=== PATIENT | female | born 1975 | race Caucasian/White ===

== ENCOUNTER 2017-07-16 17:30 | Emergency (ER) | payer OTHER ==
[~2017-07-16] VITALS: Ht 165.1 cm; Wt 142.9 kg
[2017-07-16 18:05] VITALS: BP 135/96
--- NOTE | 2017-07-16 18:48 | PHYS DOC ---
Past Medical History Past Medical History: Arthritis, Hypertension, Migraines, Other Additional Past Medical Histor: DDD - chronic back and neck pain, nerve damage ; TBI Past Surgical History: Cervical Fusion, Tubal ligation Additional Past Surgical Histo: stomach, jaw, right ankle, right foot, MRSA in breast, exp lap Alcohol Use: None Drug Use: Marijuana Adult General Chief Complaint Chief Complaint: KNEE INJURY [facility] HPI Patient is a 41 year old female presents to the emergency department stating that she has been having right knee pain for the last 3 weeks. She denies any injury or trauma. She states that she has increased pain when trying to bend or put any type of kneeling pressure on the knee. Patient states she has been taking oxycodone for the pain and discomfort which is not helping. She denies any numbness or tingling down into the lower extremity. She states she is able to ambulate however sometimes she has increased pain with ambulation. Patient states that she is allergic to aspirin and ibuprofen and cannot take any nonsteroidal anti-inflammatories. Review of Systems Review of Systems Constitutional: Denies fever or chills [] Eyes: Denies change in visual acuity, redness, or eye pain [] HENT: Denies nasal congestion or sore throat [] Respiratory: Denies cough or shortness of breath [] Cardiovascular: No additional information not addressed in HPI [] GI: Denies abdominal pain, nausea, vomiting, bloody stools or diarrhea [] : Denies dysuria or hematuria [] Musculoskeletal: Denies back pain. C/o right knee pain Integument: Denies rash or skin lesions [] Neurologic: Denies headache, focal weakness or sensory changes [] Endocrine: Denies polyuria or polydipsia [] All other systems were reviewed and found to be within normal limits, except as documented in this note. Allergies Allergies Allergies Coded Allergies Type Severity Reaction Last Updated Verified aspirin Allergy Severe SOB 10/01/13 Yes ibuprofen Allergy Severe SOB 10/01/13 Yes Physical Exam Physical Exam Constitutional: Well developed, well nourished, no acute distress, non-toxic appearance. [] HENT: Normocephalic, atraumatic, bilateral external ears normal, oropharynx moist, no oral exudates, nose normal. [] Eyes: PERRLA, EOMI, conjunctiva normal, no discharge. [] Neck: Normal range of motion, no tenderness, supple, no stridor. [] Cardiovascular:Heart rate regular rhythm, no murmur [] Lungs & Thorax: Bilateral breath sounds clear to auscultation [] Skin: Warm, dry, no erythema, no rash. [] Extremities: right anterior knee tenderness, no cyanosis, no clubbing, ROM intact, no edema. Peripheral pulses 2+ cap refill brisk < 2 seconds. Negative Sugar, negative vargus, negative valgus. Neurologic: Alert and oriented X 3, normal motor function, normal sensory function, no focal deficits noted. [] Psychologic: Affect normal, judgement normal, mood normal. [] Current Patient Data Vital Signs Vital Signs Date Time Temp Pulse Resp B/P (MAP) Pulse Ox O2 Delivery O2 Flow Rate FiO2 07/16/17 18:05 98.1 93 20 135/96 (109) 91 Room Air 98.1 EKG EKG [] Radiology/Procedures Radiology/Procedures [] Course & Med Decision Making Course & Med Decision Making Pertinent Labs and Imaging studies reviewed. (See chart for details) Right knee x-rays were negative per Dr. Ruiz. Patient will be discharged home with an Arnol wrap to the right knee with recommendations for steroids to help with inflammation and discomfort. Patient has oxycodone at home which she can continue taking for further pain management. Recommended that she follow up with orthopedic. Patient agrees with discharge instructions and treatment regimens and follow-up recommendations. [I've spoken with the patient and/or caregivers. I've explained the patient's condition, diagnosis and treatment plan based on information available to me at this time. I've answered the patient's and/or caregivers questions and addressed any concerns. The patient and/or caregivers have a good understanding the patient's diagnosis, condition and treatment plan as can be expected at this point. Vital signs have been stabilized. The patient's condition is stable for discharge from the emergency department. The patient will pursue further outpatient evaluation with her primary care provider or other designated consulting physician as outlined in the discharge instructions. Patient and/or caregivers are agreeable to this plan of care and follow-up instructions have been explained in detail. The patient and/or caregivers have received these instructions in written format and expressed understanding of these discharge instructions. The patient and her caregivers are aware that if any significant change in condition or worsening of symptoms should prompt him to immediately return to this of the closest emergency department. If an emergent department is not readily available I would encourage him to call 911. ] Sheila Disclaimer Sheila Disclaimer This electronic medical record was generated, in whole or in part, using a voice recognition dictation system. Departure Departure Impression: Primary Impression: Right knee pain Disposition: HOME, SELF-CARE Condition: STABLE Referrals: UNKNOWN PCP NAME (PCP) FREDY COOPER II, MD Patient Instructions: Elastic Bandage and RICE, Knee Pain, [id number] Additional Instructions: Activity as tolerated. Ice packs on 20 minutes off several times a day. Elevation as much as possible. Medications as prescribed. Follow-up with orthopedic within the week. Return back to emergency department since symptoms become worse. 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
--- NOTE | 2017-07-17 07:58 | RAD ---
Right knee with patella, 4 views, 07/16/2017: History: Right knee pain, injury There is minimal spurring at the knee joint and at the patellofemoral articulation. No fracture or dislocation is identified. There is a suggestion of a joint effusion. IMPRESSION: 1. Mild degenerative change. 2. No acute bony abnormality is detected.
== END 2017-07-16 19:40 | disposition home or self-care (01) ==
LOC: ER 17:30
DX: M25.561 Pain in right knee (principal); G89.29 Other chronic pain; I10 Essential (primary) hypertension; G43.909 Migraine, unspecified, not intractable, without status migrainosus; Z88.6 Allergy status to analgesic agent; Z88.8 Allergy status to other drugs, medicaments and biological substances
CPT/HCPCS: 73564; 99284

== ENCOUNTER 2017-10-02 12:22 | Inpatient (IN) | payer OTHER ==
[2017-10-02 13:34] LABS: ADD MAN DIFF? NO
[2017-10-02 13:45] LABS: ANION GAP 6 (6-14); BLOOD UREA NITROGEN 7 mg/dL (7-20); BUN/CREATININE RATIO 9 (6-20); CALCIUM 8.3 mg/dL (8.5-10.1); CARBON DIOXIDE 30 mmol/L (21-32); CHLORIDE 100 mmol/L (98-107); CREATININE 0.8 mg/dL (0.6-1.0); GFR 77.9; GLUCOSE 98 mg/dL (70-99); POTASSIUM 3.9 mmol/L (3.5-5.1); SODIUM 136 mmol/L (136-145)
[2017-10-02 13:51] LABS: ALBUMIN 3.1 g/dL (3.4-5.0); ALBUMIN/GLOBULIN RATIO 0.8 (1.0-1.7); ALK PHOS 121 U/L (46-116); ALT (SGPT) 17 U/L (14-59); AST (SGOT) 50 U/L (15-37); TOTAL BILIRUBIN 0.2 mg/dL (0.2-1.0); TOTAL PROTEIN 6.9 g/dL (6.4-8.2)
[2017-10-02 13:53] LABS: TROPONINI < 0.017 ng/mL (0.000-0.055)
[2017-10-02] MEDS: MORPHINE SULFATE 4 MG/ML DISP.SYRIN. IV ×6 (13:53→23:01)
[2017-10-02 14:04] LABS: BASO # 0.1 x10^3/uL (0.0-0.2); BASO % 1 % (0-3); EOS # 0.1 x10^3/uL (0.0-0.7); EOS % 1 % (0-3); HEMATOCRIT 34.2 % (36.0-47.0); HEMOGLOBIN 10.6 g/dL (12.0-15.5); LYMPH # 2.4 x10^3/uL (1.0-4.8); LYMPH % 19 % (24-48); MEAN CORPUSCULAR HEMOGLOBIN 23 pg (25-35); MEAN CORPUSCULAR HGB CONC 31 g/dL (31-37); MEAN CORPUSCULAR VOLUME 75 fL (79-100); MONO # 0.8 x10^3/uL (0.0-1.1); MONO % 7 % (0-9); NEUT % 73 % (31-73); PLATELET COUNT 370 x10^3/uL (140-400); RED BLOOD COUNT 4.57 x10^6/uL (3.50-5.40); RED CELL DISTRIBUTION WIDTH 18.8 % (11.5-14.5); WHITE BLOOD COUNT 12.4 x10^3/uL (4.0-11.0)
[2017-10-02 14:11] LABS: PROTHROMBIN TIME PATIENT 12.8 SEC (11.7-14.0)
[2017-10-02 18:25] LABS: VITAMIN-B12 265 pg/mL (247-911)
[2017-10-02] MEDS: AMITRIPTYLINE HCL 50 MG TABLET PO ×2 (20:10)
[2017-10-02] MEDS: buPROPion 75 MG TABLET. PO ×2 (20:10)
[2017-10-02] MEDS: diazePAM 5 MG TABLET PO ×2 (20:11)
[2017-10-02] MEDS: DIPYRIDAMOLE 25 MG TABLET. PO ×2 (20:11)
[2017-10-02] MEDS: GABAPENTIN 400 MG CAPSULE. PO ×2 (20:11)
[2017-10-03 05:48] LABS: ADD MAN DIFF? NO
[2017-10-03 06:28] LABS: BASO # 0.1 x10^3/uL (0.0-0.2); BASO % 1 % (0-3); EOS # 0.2 x10^3/uL (0.0-0.7); EOS % 3 % (0-3); HEMATOCRIT 31.6 % (36.0-47.0); LYMPH # 2.5 x10^3/uL (1.0-4.8); LYMPH % 30 % (24-48); MEAN CORPUSCULAR HEMOGLOBIN 24 pg (25-35); MEAN CORPUSCULAR HGB CONC 32 g/dL (31-37); MEAN CORPUSCULAR VOLUME 75 fL (79-100); MONO # 0.8 x10^3/uL (0.0-1.1); MONO % 10 % (0-9); NEUT # 4.7 x10^3uL (1.8-7.7); NEUT % 57 % (31-73); PLATELET COUNT 326 x10^3/uL (140-400); RED BLOOD COUNT 4.21 x10^6/uL (3.50-5.40); RED CELL DISTRIBUTION WIDTH 19.2 % (11.5-14.5); WHITE BLOOD COUNT 8.3 x10^3/uL (4.0-11.0)
[2017-10-03 06:36] LABS: ALBUMIN 2.6 g/dL (3.4-5.0); ALBUMIN/GLOBULIN RATIO 0.6 (1.0-1.7); ALK PHOS 114 U/L (46-116); ALT (SGPT) 13 U/L (14-59); ANION GAP 7 (6-14); AST (SGOT) 35 U/L (15-37); BUN/CREATININE RATIO 12 (6-20); CALCIUM 7.6 mg/dL (8.5-10.1); CARBON DIOXIDE 29 mmol/L (21-32); CHLORIDE 100 mmol/L (98-107); CHOLESTEROL 133 mg/dL (0-200); GFR 60.2; GLUCOSE 106 mg/dL (70-99); HDLC 36 mg/dL (40-60); LDLC 66 mg/dL (0-100); NON-HDL CHOLESTEROL 97 mg/dL (0-129); POTASSIUM 3.2 mmol/L (3.5-5.1); SODIUM 136 mmol/L (136-145); TOTAL BILIRUBIN 0.1 mg/dL (0.2-1.0); TOTAL PROTEIN 6.7 g/dL (6.4-8.2); TRIGLYCERIDES 153 mg/dL (0-150); VLDLC 31 mg/dL (0-40)
[2017-10-03 06:37] LABS: CHOLESTEROL/HDL RATIO 3.7
[2017-10-03 06:41] LABS: BLOOD UREA NITROGEN 12 mg/dL (7-20)
[2017-10-03 06:55] LABS: THYROID STIM HORMONE (TSH) 0.711 uIU/mL (0.358-3.74)
[2017-10-03] MEDS ORDERED: [UNRECOGNIZED DRUG - OTHER] PO ×2 (09:00)
[2017-10-03] MEDS ORDERED: NON FORMULARY ITEM (Lisdexamfetamine Dimesylate (Vyvanse) 70 MG) PO ×2 (09:00)
[2017-10-03] MEDS: lamoTRIgine 100 MG TABLET. PO ×2 (09:00)
[2017-10-03] MEDS ORDERED: LISINOPRIL PO ×2 (09:00)
[2017-10-03] MEDS ORDERED: HYDROCHLOROTHIAZIDE PO ×2 (09:00)
[2017-10-03 09:59] LABS: VITAMIN-B12 198 pg/mL (247-911)
[2017-10-03] MEDS: GABAPENTIN 400 MG CAPSULE. PO ×4 (10:26→13:36)
[2017-10-03] MEDS: PANTOPRAZOLE 40 MG TABLET.DR. PO ×2 (10:26)
[2017-10-03] MEDS: hydroCHLOROthiazide 25 MG TABLET PO ×2 (10:26)
[2017-10-03] MEDS: diazePAM 5 MG TABLET PO ×2 (10:26)
[2017-10-03] MEDS: DIPYRIDAMOLE 25 MG TABLET. PO ×2 (10:26)
[2017-10-03] MEDS: LISINOPRIL 20 MG TABLET PO ×2 (10:27)
[2017-10-03] MEDS: buPROPion 75 MG TABLET. PO ×2 (10:27)
[2017-10-03] MEDS: MORPHINE SULFATE 4 MG/ML DISP.SYRIN. IV ×4 (10:33→13:42)
[2017-10-03] MEDS: CYANOCOBALAMIN (VITAMIN B-12) 1,000 MCG TABLET. PO ×2 (11:32)
[2017-10-03] MEDS: ERGOCALCIFEROL (VITAMIN D2) 50,000 UNIT CAPSULE. PO ×2 (11:32)
[2017-10-03] MEDS: CALCIUM CARBONATE 500 MG TABLET PO ×2 (11:32)
[2017-10-03] MEDS: CYANOCOBALAMIN (VITAMIN B-12) 1,000 MCG/ML VIAL IM ×2 (13:36)
[2017-10-03] MEDS: POTASSIUM CHLORIDE 20 MEQ TABLET.ER. PO ×2 (13:37)
== END 2017-10-03 16:30 | disposition home or self-care (01) | DRG 948 ==
LOC: ER 12:22 → 6 SOUTH 15:00
DX: R53.1 Weakness (principal); E66.01 Morbid (severe) obesity due to excess calories; Z68.43 Body mass index [BMI] 50.0-59.9, adult; D64.9 Anemia, unspecified; E53.8 Deficiency of other specified B group vitamins; E55.9 Vitamin D deficiency, unspecified; F17.200 Nicotine dependence, unspecified, uncomplicated; I10 Essential (primary) hypertension; M19.90 Unspecified osteoarthritis, unspecified site; G89.29 Other chronic pain; R47.81 Slurred speech; G43.909 Migraine, unspecified, not intractable, without status migrainosus; F31.9 Bipolar disorder, unspecified; Z98.1 Arthrodesis status; Z88.8 Allergy status to other drugs, medicaments and biological substances; Z91.013 Allergy to seafood
CPT/HCPCS: 36415; 70450; 70551; 71045; 72125; 72141; 80053; 80061; 82306; 82607; 84443; 84484; 85025; 85610; 93005; 93306; 93880; 96374; 99285-25; J2270; J3420

== ENCOUNTER 2019-10-16 10:30 | Emergency (ER) | payer OTHER ==
[~2019-10-16] VITALS: Ht 167.6 cm; Wt 140.0 kg
[~2019-10-16 10:30] MED LIST: AMIT50TA PO; DIAZ5TAB4 PO; ERGO500027 PO; FLUT12AE INH; GABA400C7 PO; LAMO100T8 PO; LISD70CA5 PO; LISI1TAB20 PO; OMEP20CA16 PO; OXYC15TA PO; TIOT18CA INH; VITA1TAB19 PO; WELLBUTRIN PO
[2019-10-16] MEDS ORDERED: methylPREDNISolone SOD SUCC PF 125 MG/2 ML VIAL. IV ONE (11:30)
[2019-10-16] MEDS ORDERED: FAMOTIDINE 20 MG/2 ML VIAL IVP ONE (11:30)
[2019-10-16 11:40] LABS: BASO # 0.2 x10^3/uL (0.0-0.2); BASO % 2 % (0-3); EOS # 0.2 x10^3/uL (0.0-0.7); EOS % 2 % (0-3); HEMATOCRIT 28.5 % (36.0-47.0); HEMOGLOBIN 8.4 g/dL (12.0-15.5); LYMPH # 2.8 x10^3/uL (1.0-4.8); LYMPH % 25 % (24-48); MEAN CORPUSCULAR HEMOGLOBIN 20 pg (25-35); MEAN CORPUSCULAR HGB CONC 30 g/dL (31-37); MEAN CORPUSCULAR VOLUME 66 fL (79-100); MONO # 0.6 x10^3/uL (0.0-1.1); MONO % 5 % (0-9); NEUT # 7.5 x10^3/uL (1.8-7.7); NEUT % 66 % (31-73); PLATELET COUNT 412 x10^3/uL (140-400); RED BLOOD COUNT 4.32 x10^6/uL (3.50-5.40); RED CELL DISTRIBUTION WIDTH 19.5 % (11.5-14.5); WHITE BLOOD COUNT 11.4 x10^3/uL (4.0-11.0)
--- NOTE | 2019-10-16 11:47 | PHYS DOC ---
Past Medical History Past Medical History: Anxiety, Arthritis, Bipolar, Depression, Hypertension, Migraines, Other Additional Past Medical Histor: DDD - chronic back and neck pain, nerve damage; TBI,obesity Past Surgical History: Cervical Fusion, Tubal ligation Additional Past Surgical Histo: stomach, jaw, right ankle, right foot, MRSA in breast, exp lap,neck surgery Smoking Status: Current Every Day Smoker Alcohol Use: None Drug Use: Marijuana Adult General Chief Complaint Chief Complaint: OTHER COMPLAINTS HPI HPI Patient is a 44 year old female with history of hypertension, migraine, bipolar disorder, DDD - chronic back and neck pain, nerve damage; TBI,obesity who presents with complaining of multiple problems. Patient states she has intermi ttent episodes of chest pain for several weeks that became worse 5 days ago denies having any more chest pain since then. Patient states she thinks her chest pain was related to her anxiety. Patient also complaining of right elbow in full rash since yesterday morning with burning feeling that improved with applying ice on her elbow but she states she woke up this morning and had the same rash with numbness of her right fingers and hand since 5:30 today as a constant numbness without weakness, fever and chills, nausea and vomiting, blurred vision. Patient complaining of chronic headache without visual changes today. Patient states she did not have any numbness patient did go to the police at 0 230. Patient rated her pain 7/10 in right elbow and denies injury. Patient had oxycodone this morning without improvement of her pain. Review of Systems Review of Systems Constitutional: Denies fever or chills [] Eyes: Denies change in visual acuity, redness, or eye pain [] HENT: Denies nasal congestion or sore throat [] Respiratory: Denies cough or shortness of breath [] Cardiovascular: No additional information not addressed in HPI [] GI: Denies abdominal pain, nausea, vomiting, bloody stools or diarrhea [] : Denies dysuria or hematuria [] Musculoskeletal: Denies back pain or joint pain [] Integument: Reports rash Neurologic: Denies headache, sensory changes [] Endocrine: Denies polyuria or polydipsia [] All other systems were reviewed and found to be within normal limits, except as documented in this note. Current Medications Current Medications Current Medications Medications (Trade) Dose Ordered Sig/Cuco Start Time Stop Time Status Last Admin Dose Admin Famotidine (Pepcid Vial) 20 mg 1X ONCE 10/16/19 11:30 10/16/19 11:32 DC 10/16/19 12:23 20 MG Methylprednisolone Sodium Succinate (SOLU-Medrol 125MG VIAL) 125 mg 1X ONCE 10/16/19 11:30 10/16/19 11:32 DC 10/16/19 12:23 125 MG Allergies Allergies Allergies Coded Allergies Type Severity Reaction Last Updated Verified aspirin Allergy Severe SOB 10/01/13 Yes ibuprofen Allergy Severe SOB 10/01/13 Yes Uncoded Allergies Type Severity Reaction Last Updated Verified seafood Allergy Severe sob 10/02/17 Physical Exam Physical Exam Constitutional: Well developed, well nourished, mild distress, non-toxic appearance, morbidly obese mild pallor. [] HENT: Normocephalic, atraumatic. Eyes: PERRLA, EOMI, conjunctiva normal, no discharge. [] Neck: Normal range of motion, no tenderness, supple, no stridor. [] Cardiovascular:Heart rate regular rhythm, no murmur [] Lungs & Thorax: Bilateral breath sounds clear to auscultation [] Abdomen: Bowel sounds normal, soft, no tenderness, no masses, no pulsatile masses. [] Skin: Warm, dry, no erythema, no rash. [] Back: No tenderness, no CVA tenderness. [] Extremities: 2 x 2 cm area of erythema and tenderness without sign of abscess in right elbow , no cyanosis, no clubbing, ROM intact, no edema. [] Neurologic: Alert and oriented X 3, no focal deficits noted. [] Psychologic: Affect anxious, mood normal. [] Current Patient Data Vital Signs Vital Signs Date Time Temp Pulse Resp B/P (MAP) Pulse Ox O2 Delivery O2 Flow Rate FiO2 10/16/19 13:00 84 18 148/86 (106) 95 Room Air 10/16/19 11:03 98.1 98.1 Lab Values Laboratory Tests Test 10/16/19 11:13 White Blood Count 11.4 x10^3/uL (4.0-11.0) H Red Blood Count 4.32 x10^6/uL (3.50-5.40) Hemoglobin 8.4 g/dL (12.0-15.5) L Hematocrit 28.5 % (36.0-47.0) L Mean Corpuscular Volume 66 fL (79-100) L Mean Corpuscular Hemoglobin 20 pg (25-35) L Mean Corpuscular Hemoglobin Concent 30 g/dL (31-37) L Red Cell Distribution Width 19.5 % (11.5-14.5) H Platelet Count 412 x10^3/uL (140-400) H Neutrophils (%) (Auto) 66 % (31-73) Lymphocytes (%) (Auto) 25 % (24-48) Monocytes (%) (Auto) 5 % (0-9) Eosinophils (%) (Auto) 2 % (0-3) Basophils (%) (Auto) 2 % (0-3) Neutrophils # (Auto) 7.5 x10^3/uL (1.8-7.7) Lymphocytes # (Auto) 2.8 x10^3/uL (1.0-4.8) Monocytes # (Auto) 0.6 x10^3/uL (0.0-1.1) Eosinophils # (Auto) 0.2 x10^3/uL (0.0-0.7) Basophils # (Auto) 0.2 x10^3/uL (0.0-0.2) Platelet Estimate Increased (ADEQUATE) Large Platelets Few Hypochromasia Marked Anisocytosis Slight Microcytosis Marked Prothrombin Time 12.7 SEC (11.7-14.0) Prothrombin Time INR 1.0 (0.8-1.1) Sodium Level 139 mmol/L (136-145) Potassium Level 4.0 mmol/L (3.5-5.1) Chloride Level 100 mmol/L (98-107) Carbon Dioxide Level 28 mmol/L (21-32) Anion Gap 11 (6-14) Blood Urea Nitrogen 10 mg/dL (7-20) Creatinine 1.1 mg/dL (0.6-1.0) H Estimated GFR (Cockcroft-Gault) 53.5 BUN/Creatinine Ratio 9 (6-20) Glucose Level 141 mg/dL (70-99) H Calcium Level 8.9 mg/dL (8.5-10.1) Magnesium Level 2.1 mg/dL (1.8-2.4) Total Bilirubin 0.1 mg/dL (0.2-1.0) L Aspartate Amino Transferase (AST) 23 U/L (15-37) Alanine Aminotransferase (ALT) 13 U/L (14-59) L Alkaline Phosphatase 119 U/L (46-116) H Troponin I Quantitative < 0.017 ng/mL (0.000-0.055) GP-Wxt-E-Type Natriuretic Peptide 84 pg/mL (0-124) Total Protein 7.1 g/dL (6.4-8.2) Albumin 3.0 g/dL (3.4-5.0) L Albumin/Globulin Ratio 0.7 (1.0-1.7) L Laboratory Tests 10/16/19 11:13 Laboratory Tests 10/16/19 11:13 EKG EKG EKG interpreted by me. EKG at 1225 showed normal sinus rhythm at rate of 88, nonspecific T-wave abnormality, no acute distress even elevation. Radiology/Procedures Radiology/Procedures [address] [id number] IMAGING REPORT Signed PATIENT: MARY JANE PACHECO ACCOUNT: [id number] : 1975 LOCATION: ER AGE: 44 SEX: F EXAM STATUS: REG ER ORD. PHYSICIAN: MARIZA PAULA MD REASON: chest pain and paresthesia PROCEDURE: CT HEAD WO CONTRAST Examination: CT HEAD WO CONTRAST History: Paresthesias Comparison/Correlation: None Findings: Axial images of the head were obtained without contrast. Coronal reformatted images were provided. Ventricles are normal size. No intracranial hemorrhage, or mass effect. The orbits are unremarkable. Small right sphenoid sinus mucous retention cyst is present. Impression: No suspicious process. PQRS Compliance Statement: One or more of the following individualized dose reduction techniques were utilized for this examination: 1. Automated exposure control 2. Adjustment of the mA and/or kV according to patient size 3. Use of iterative reconstruction technique Electronically signed by: Denis Wright MD (10/16/2019 12:07 PM) [id number] DICTATED and SIGNED BY: DENIS WRIGHT MD DATE: 10/16/[address] [place] [id number] IMAGING REPORT Signed PATIENT: MARY JANE PACHECO ACCOUNT: [id number] : 1975 LOCATION: ER AGE: 44 SEX: F EXAM STATUS: REG ER ORD. PHYSICIAN: MARIZA PAULA MD REASON: pain PROCEDURE: ELBOW RIGHT 3V Examination: ELBOW RIGHT 3V History: Pain Comparison/Correlation: None Findings: Total of 3 images of the right elbow were obtained. Joint spaces are normal. No fracture or bony destruction. No fat-pad displacement to suggest joint effusion. No degenerative changes. Soft tissues unremarkable. Impression: Normal right elbow x-ray exam. Electronically signed by: Denis Wright MD (10/16/2019 12:19 PM) [id number] DICTATED and SIGNED BY: DENIS WRIGHT MD DATE: 10/16/19 1219 [facility] [address] [place], [place] [id number] IMAGING REPORT Signed PATIENT: MARY JANE PACHECO ACCOUNT: [id number] : 1975 LOCATION: ER AGE: 44 SEX: F EXAM STATUS: REG ER ORD. PHYSICIAN: MARIZA PAULA MD REASON: chest pain PROCEDURE: PORTABLE CHEST 1V Examination: PORTABLE CHEST 1V History: Chest pain Comparison/Correlation: 10/02/2017 Portable Chest X-ray Exam Findings: Portable upright frontal view of chest was obtained. Heart size and pulmonary vessels are normal. No infiltrate or pleural effusion. Postoperative cervical spine fusion is present. No pneumothorax. Impression: No acute process. Electronically signed by: Denis Wright MD (10/16/2019 11:52 AM) [id number] DICTATED and SIGNED BY: DENIS WRIGHT MD DATE: 10/16/19 1157 Course & Med Decision Making Course & Med Decision Making Pertinent Labs and Imaging studies reviewed. (See chart for details) Evaluation of patient in ER showed 44-year-old female patient with complaining of multiple problems with history of anxiety and panic attack. Patient had unremarkable physical exam except for mild anemia and morbid obesity. Patient eloped before having all of the test results. Dragon Disclaimer Dragon Disclaimer This electronic medical record was generated, in whole or in part, using a voice recognition dictation system. Departure Departure Impression: Primary Impression: Left against medical advice Disposition: 07 AGAINST MEDICAL ADVICE Condition: STABLE Referrals: AIDE REID APRN (PCP) MARIZA PAULA MD Oct 16, 2019 11:46
[2019-10-16 11:53] LABS: CALCIUM 8.9 mg/dL (8.5-10.1); CREATININE 1.1 mg/dL (0.6-1.0); GFR 53.5; PROTHROMBIN TIME PATIENT 12.7 SEC (11.7-14.0)
--- NOTE | 2019-10-16 11:54 | RAD ---
Examination: PORTABLE CHEST 1V History: Chest pain Comparison/Correlation: 10/02/2017 Portable Chest X-ray Exam Findings: Portable upright frontal view of chest was obtained. Heart size and pulmonary vessels are normal. No infiltrate or pleural effusion. Postoperative cervical spine fusion is present. No pneumothorax. Impression: No acute process. Electronically signed by: Denis Mcdaniel MD (10/16/2019 11:52 AM) [id number]
[2019-10-16 11:58] LABS: ALBUMIN/GLOBULIN RATIO 0.7 (1.0-1.7); MAGNESIUM 2.1 mg/dL (1.8-2.4); TOTAL BILIRUBIN 0.1 mg/dL (0.2-1.0); TOTAL PROTEIN 7.1 g/dL (6.4-8.2)
--- NOTE | 2019-10-16 12:11 | RAD ---
Examination: CT HEAD WO CONTRAST History: Paresthesias Comparison/Correlation: None Findings: Axial images of the head were obtained without contrast. Coronal reformatted images were provided. Ventricles are normal size. No intracranial hemorrhage, or mass effect. The orbits are unremarkable. Small right sphenoid sinus mucous retention cyst is present. Impression: No suspicious process. PQRS Compliance Statement: One or more of the following individualized dose reduction techniques were utilized for this examination: 1. Automated exposure control 2. Adjustment of the mA and/or kV according to patient size 3. Use of iterative reconstruction technique Electronically signed by: Denis Mcdaniel MD (10/16/2019 12:07 PM) [id number]
--- NOTE | 2019-10-16 12:22 | RAD ---
Examination: ELBOW RIGHT 3V History: Pain Comparison/Correlation: None Findings: Total of 3 images of the right elbow were obtained. Joint spaces are normal. No fracture or bony destruction. No fat-pad displacement to suggest joint effusion. No degenerative changes. Soft tissues unremarkable. Impression: Normal right elbow x-ray exam. Electronically signed by: Denis Mcdaniel MD (10/16/2019 12:19 PM) [id number]
[2019-10-16 13:11] LABS: PLT ESTIMATE INCREASED (ADEQUATE)
[2019-10-16 13:13] LABS: ANISOCYTOSIS SLIGHT; HYPOCHROMIA MARKED; MICROCYTOSIS MARKED
[2019-10-16 13:30] VITALS: BP 142/81
--- NOTE | 2019-10-17 06:21 | EKG ---
[facility] [address] [place] [address] Test Date: 2019-10-16 Test Time: 12:25:30 Pat Name: MARY JANE PACHECO Department: Room: Gender: F [employer]: : 1975 Requested By: MARIZA PAULA Order Number: [id number] Reading MD: Measurements Intervals [place] Rate: 87 P: 31 GA: 190 QRS: 24 QRSD: 84 T: 38 QT: 350 QTc: 426 Interpretive Statements SINUS RHYTHM NON SPECIFIC T ABNORMALITY BORDERLINE ECG No previous ECG available for comparison
== END 2019-10-16 13:56 | disposition left against medical advice (07) ==
LOC: ER 10:30
DX: R07.89 Other chest pain (principal); M25.521 Pain in right elbow; R20.0 Anesthesia of skin; R21 Rash and other nonspecific skin eruption; G89.29 Other chronic pain; M54.2 Cervicalgia; G43.909 Migraine, unspecified, not intractable, without status migrainosus; F31.9 Bipolar disorder, unspecified; I10 Essential (primary) hypertension; F17.200 Nicotine dependence, unspecified, uncomplicated; Z88.6 Allergy status to analgesic agent; Z91.013 Allergy to seafood; Z88.8 Allergy status to other drugs, medicaments and biological substances
CPT/HCPCS: 36415; 70450; 71045; 73080; 80053; 83735; 83880; 84484; 85025; 85610; 93005; 96374; 96375; 99285; J2930; J3490

== ENCOUNTER 2020-03-03 16:14 | Emergency (ER) | payer OTHER ==
[~2020-03-03] VITALS: Ht 167.6 cm; Wt 136.0 kg
[~2020-03-03 16:14] MED LIST changes: +ALPR0.5T PO; +GABA600T7 PO; +OMEP20TA8 PO; +OXYC10TA PO; -OXYC15TA PO; +OXYC15TA3 PO
[2020-03-03] MEDS ORDERED: ONDANSETRON PF 4 MG/2 ML VIAL. IVP ONE (17:15)
[2020-03-03] MEDS ORDERED: IV NORMAL SALINE 1000ML BAG 1,000 ML IV ONE (17:15)
[2020-03-03] MEDS ORDERED: fentaNYL PF VIAL 100 MCG/2 ML VIAL IVP ONE ×2 (17:15→19:00)
--- NOTE | 2020-03-03 17:17 | PHYS DOC ---
Past Medical History Past Medical History: Anxiety, Arthritis, Bipolar, Depression, Hypertension, Migraines, Other Additional Past Medical Histor: DDD - chronic back and neck pain, nerve damage; TBI,obesity Past Surgical History: Cervical Fusion, Tubal ligation Additional Past Surgical Histo: stomach, jaw, right ankle, right foot, MRSA in breast, exp lap,neck surgery Smoking Status: Current Every Day Smoker Alcohol Use: None Drug Use: Marijuana General Adult EDM: Chief Complaint: ABNORMAL LABS HPI: HPI: Patient is a 44 year old F who was admitted earlier this month for pneumonia and sepsis. She states she left prior to them wanting her to and was on Augmentin at home but feels like didn't improve. She saw her PCP last week and was alerted on Monday that her labwork showed continued concerns for infection and they recommended she come back to the hospital for IV treatment. She was out of town during that time and had to make arrangements for her 6 year old so came to ER today. She does appear diophoretic and pale on exam and complains of cough and headache. Review of Systems: Review of Systems: Constitutional: Denies fever or chills. [] Eyes: Denies change in visual acuity. [] HENT: Denies nasal congestion or sore throat. [] Respiratory: Denies cough or shortness of breath. [] Cardiovascular: Denies chest pain or edema. [] GI: Denies abdominal pain, nausea, vomiting, bloody stools or diarrhea. [] : Denies dysuria. [] Musculoskeletal: Denies back pain or joint pain. [] Integument: Denies rash. [] Neurologic: Denies headache, focal weakness or sensory changes. [] Endocrine: Denies polyuria or polydipsia. [] Lymphatic: Denies swollen glands. [] Psychiatric: Denies depression or anxiety. [] Heart Score: Risk Factors: Risk Factors: DM, Current or recent (<one month) smoker, HTN, HLP, family h istory of CAD, obesity. Risk Scores: Score 0 - 3: 2.5% MACE over next 6 weeks - Discharge Home Score 4 - 6: 20.3% MACE over next 6 weeks - Admit for Clinical Observation Score 7 - 10: 72.7% MACE over next 6 weeks - Early Invasive Strategies Allergies: Allergies: Allergies Coded Allergies Type Severity Reaction Last Updated Verified aspirin Allergy Severe SOB 10/01/13 Yes ibuprofen Allergy Severe SOB 10/01/13 Yes fish derived Allergy Unknown ANAPHYLAXIS 02/17/20 Yes Physical Exam: PE: Constitutional: Well developed, well nourished, no acute distress, non-toxic appearance. [] HENT: Normocephalic, atraumatic, bilateral external ears normal, oropharynx moist, no oral exudates, nose normal. [] Eyes: PERRLA, EOMI, conjunctiva normal, no discharge. [] Neck: Normal range of motion, no tenderness, supple, no stridor. [] Cardiovascular:Heart rate regular rhythm, no murmur [] Lungs & Thorax: Bilateral breath sounds clear to auscultation [] Abdomen: Bowel sounds normal, soft, no tenderness, no masses, no pulsatile masses. [] Skin: Warm, dry, no erythema, no rash. [] Back: No tenderness, no CVA tenderness. [] Extremities: No tenderness, no cyanosis, no clubbing, ROM intact, no edema. [] Neurologic: Alert and oriented X 3, normal motor function, normal sensory function, no focal deficits noted. [] Psychologic: Affect normal, judgement normal, mood normal. [] EKG: EKG: [] Radiology/Procedures: Radiology/Procedures: [] Course & Med Decision Making: Course & Med Decision Making Pertinent Labs and Imaging studies reviewed. (See chart for details) Pt's labs/CXR are very reassuring and her vitals are stable with no current signs or symptoms of sepsis. Pt feeling better while in ER. She does have mild UTI and was given Rocephin here and will give Keflex for home for few days but pneumonia appears to have resolved. Pt refused the CoVid test and did discuss that we cannot rule this out with her cough and recent fevers. She should q uarantine and have testing done. Rhonaon Disclaimer: Sheila Disclaimer: This electronic medical record was generated, in whole or in part, using a voice recognition dictation system. Departure Departure Impression: Primary Impression: Cough Additional Impressions: UTI (urinary tract infection) Headache Disposition: HOME, SELF-CARE Condition: IMPROVED Referrals: AIDE REID APRN (PCP) Patient Instructions: Cough, Adult, [id number], General Headache Without Cause, Urinary Tract Infection, [id number] Additional Instructions: Your tests were very reassuring today. You do not appear septic and your pneumonia has resolved. You do have a mild UTI and we will continue antibiotics for this. You did not want CoVid19 testing and therefore we cannot rule that out. We recommend you have this testing done at an outpatient facility and remain quarantined at home until results are back. Please quit smoking. Return to ER with any worsening symptoms. Scripts Albuterol Sulfate (PROAIR HFA INHALER) 8.5 Gm Hfa.aer.ad 1 PUFF INH PRN Q6HRS PRN for SHORTNESS OF BREATH for 7 Days, #1 INHALER 0 Refills Prov: PATRICIA PANTOJA 03/03/20 Hydrocodone/Apap 5-325 (NORCO 5-325 TABLET) 1 Each Tablet 1-2 TAB PO Q4-6HRS PRN for PAIN, #15 TAB Prov: PATRICIA PANTOJA 03/03/20 Cephalexin (KEFLEX) 500 Mg Capsule 1 CAP PO TID for 7 Days, #21 CAP 0 Refills Prov: PATRICIA PANTOJA 03/03/20 PATRICIA PANTOJA Mar 03, 2020 17:17
[2020-03-03 17:24] LABS: BILIRUBIN,URINE NEGATIVE (NEG); CLARITY,URINE CLEAR; COLOR,URINE YELLOW; NITRITE,URINE NEGATIVE (NEG); PH,URINE 5.5 (<5.0-8.0); PROTEIN,URINE NEGATIVE (NEG-TRACE); UROBILINOGEN,URINE 0.2 mg/dL (0.2 mg/dL)
[2020-03-03 17:34] LABS: BACTERIA,URINE MODERATE /HPF (0-FEW); SQUAMOUS EPITHELIAL CELL,UR MOD /LPF
--- NOTE | 2020-03-03 17:49 | RAD ---
Exam: Chest 2 views INDICATION: Recent pneumonia TECHNIQUE: Frontal and lateral views the chest Comparisons: 02/17/2020 FINDINGS: The cardiomediastinal silhouette and pulmonary vessels are within normal limits. The lung and pleural spaces are clear. IMPRESSION: No acute cardiopulmonary process. Electronically signed by: Zi Pop MD (03/03/2020 5:46 PM) [id number]
[2020-03-03 18:12] LABS: BASO # 0.1 x10^3/uL (0.0-0.2); BASO % 1 % (0-3); EOS # 0.3 x10^3/uL (0.0-0.7); EOS % 2 % (0-3); HEMATOCRIT 28.7 % (36.0-47.0); HEMOGLOBIN 8.6 g/dL (12.0-15.5); LYMPH # 2.2 x10^3/uL (1.0-4.8); LYMPH % 20 % (24-48); MEAN CORPUSCULAR HEMOGLOBIN 19 pg (25-35); MEAN CORPUSCULAR HGB CONC 30 g/dL (31-37); MEAN CORPUSCULAR VOLUME 63 fL (79-100); MONO # 0.6 x10^3/uL (0.0-1.1); MONO % 6 % (0-9); NEUT # 8.2 x10^3/uL (1.8-7.7); NEUT % 71 % (31-73); PLATELET COUNT 413 x10^3/uL (140-400); RED BLOOD COUNT 4.58 x10^6/uL (3.50-5.40); RED CELL DISTRIBUTION WIDTH 20.9 % (11.5-14.5); WHITE BLOOD COUNT 11.5 x10^3/uL (4.0-11.0)
[2020-03-03 18:27] LABS: CALCIUM 8.5 mg/dL (8.5-10.1); GFR 59.7; POTASSIUM 3.5 mmol/L (3.5-5.1)
[2020-03-03 18:32] LABS: ALBUMIN 3.2 g/dL (3.4-5.0); ALBUMIN/GLOBULIN RATIO 0.8 (1.0-1.7); MAGNESIUM 2.2 mg/dL (1.8-2.4); TOTAL BILIRUBIN 0.2 mg/dL (0.2-1.0); TOTAL PROTEIN 7.3 g/dL (6.4-8.2)
[2020-03-03] MEDS ORDERED: ALBU2.5V8 INH (18:59)
[2020-03-03] MEDS ORDERED: HYDR-3164 PO (18:59)
[2020-03-03] MEDS ORDERED: CEPH-264 PO (18:59)
[2020-03-03 19:02] LABS: % EOS 1 % (0-5); % LYMPHS 21 % (24-48); % MONOS 7 % (0-10); % SEGS 71 % (35-66); PLT ESTIMATE ADEQUATE (ADEQUATE)
[2020-03-03 19:03] LABS: HYPOCHROMIA SLIGHT; MICROCYTOSIS SLIGHT; POLYCHROMASIA SLIGHT
[2020-03-03 19:04] LABS: HYPERSEGS PRESENT; ROULEAUX PRESENT; TARGET CELLS OCC
[2020-03-03] MEDS ORDERED: cefTRIAXone IV Push 1 GM VIAL. IVP ONE (19:15)
[2020-03-03 19:20] VITALS: BP 131/76
== END 2020-03-03 19:49 | disposition home or self-care (01) ==
LOC: ER 16:14
DX: N39.0 Urinary tract infection, site not specified (principal); R05 Cough; F41.9 Anxiety disorder, unspecified; M19.90 Unspecified osteoarthritis, unspecified site; F32.9 Major depressive disorder, single episode, unspecified; I10 Essential (primary) hypertension; G43.909 Migraine, unspecified, not intractable, without status migrainosus; G89.29 Other chronic pain; F17.200 Nicotine dependence, unspecified, uncomplicated; F12.90 Cannabis use, unspecified, uncomplicated; Z87.820 Personal history of traumatic brain injury; E66.9 Obesity, unspecified; Z68.42 Body mass index [BMI] 45.0-49.9, adult; Z98.51 Tubal ligation status; Z98.890 Other specified postprocedural states; Z88.8 Allergy status to other drugs, medicaments and biological substances; Z88.6 Allergy status to analgesic agent; Z91.013 Allergy to seafood
CPT/HCPCS: 36415; 71046; 80053; 81001; 83605; 83735; 85007; 85025; 87040; 87086; 96374; 96375; 96376; 99285; J0696; J2405; J3010; J7030

== ENCOUNTER 2020-03-15 13:06 | Inpatient (IN) | payer OTHER ==
[~2020-03-15] VITALS: Ht 167.6 cm; Wt 144.0 kg
[~2020-03-15 13:06] MED LIST changes: +ALBU2.5V8 INH; +CEPH-264 PO; +HYDR-3164 PO
[2020-03-15] MEDS ORDERED: KETOROLAC 60 MG/2 ML VIAL. IM ONE (14:15)
--- NOTE | 2020-03-15 14:17 | PHYS DOC ---
Past Medical History Past Medical History: Anxiety, Arthritis, Bipolar, Depression, Hypertension, Migraines Additional Past Medical Histor: DDD-chronic back and neck pain, nerve damage, TBI (ZAIDA SHAY APRN) Past Surgical History: Cervical Fusion, Tubal ligation Additional Past Surgical Histo: stomach, jaw, R ankle, R foot, MRSA in breast, exp lap, neck surgery (ZAIDA SHAY APRN) Smoking Status: Current Every Day Smoker Alcohol Use: None Drug Use: Marijuana (ZAIDA SHAY APRN) General Adult EDM: Chief Complaint: COUGH HPI: HPI: Patient is a 44 year old female who presents with complaints of productive cough that started last Monday morning. Patient states that her sputum is yellow-green colored large amount and easy to bring up and expel. Patient states that she gets lightheaded when she coughs, however denies any syncopal episodes. Patient states that her head hurts when she coughs worse than normal. Patient states that she suffers from chronic daily headaches that she is currently taking 50 mg 3 times a day of amitriptyline ordered by her primary care doctor for pain control. Patient is requesting a Toradol shot for increased head pain. Patient is worried that she might have pneumonia again as she reports having pneumonia on February 182019. Patient denies any fever or chills, any vision changes, any nasal congestion, does complain of sore throat with cough. Patient denies any shortness of breath. Patient denies any chest pain, however does complain of lower rib pain when she coughs hard. Patient denies any extremity edema. She denies any abdominal pain nausea vomiting or diarrhea or constipation. Patient denies any problems urinating, denies any back pain, joint pains, skin rashes. Patient denies any focal weaknesses or sensory changes. Patient denies any swelling of her glands. Patient denies any recent depressions or anxieties or recent life changes. Patient states no one else in her home with the same symptoms. (ZAIDA SHAY APRN) Review of Systems: Review of Systems: Constitutional: Denies fever or chills. Eyes: Denies change in visual acuity. HENT: Denies nasal congestion or sore throat. Respiratory: Denies shortness of breath, however complains of cough that started last Monday with large amount productive green/yellow sputum. Cardiovascular: Denies chest pain at rest, complains of lower bilateral rib pain when coughing hard. Denies edema. GI: Denies abdominal pain, nausea, vomiting, bloody stools or diarrhea. Denies constipation : Denies dysuria. Musculoskeletal: Denies back pain or joint pain. Integument: Denies rash. Neurologic: Complains of chronic daily headaches, focal weakness or sensory changes. Endocrine: Denies polyuria or polydipsia. Lymphatic: Denies swollen glands. Psychiatric: Denies depression or anxiety. (ZAIDA SHAY APRN) Heart Score: Risk Factors: Risk Factors: DM, Current or recent (<one month) smoker, HTN, HLP, family history of CAD, obesity. Risk Scores: Score 0 - 3: 2.5% MACE over next 6 weeks - Discharge Home Score 4 - 6: 20.3% MACE over next 6 weeks - Admit for Clinical Observation Score 7 - 10: 72.7% MACE over next 6 weeks - Early Invasive Strategies (ZAIDA SHAY APRN) Family History: Family History: Patient denies family history. (ZAIDA SHAY APRN) Allergies: Allergies: Allergies Coded Allergies Type Severity Reaction Last Updated Verified aspirin Allergy Severe SOB 10/01/13 Yes ibuprofen Allergy Severe SOB 10/01/13 Yes fish derived Allergy Unknown ANAPHYLAXIS 02/17/20 Yes (ZAIDA SHAY APRN) Physical Exam: PE: Constitutional: Well developed, well nourished, no acute distress, non-toxic appearance. HENT: Normocephalic, atraumatic, bilateral external ears normal, oropharynx moist, no oral exudates, nose normal. Eyes: PERRLA, EOMI, conjunctiva normal, no discharge. Pupils 4 mm. Neck: Normal range of motion, no tenderness, supple, no stridor. Cardiovascular:Heart rate regular rhythm, no murmur heart sounds S1-S2, no abnormalities noted per auscultation. Lungs & Thorax: Bilateral breath sounds clear to auscultation upper lobes, right middle lobe and bilateral lower lobes diminished for auscultation otherwise no adventitious lung sounds noted. Abdomen: Bowel sounds normal all 4 quadrants, soft, no tenderness, no masses, no pulsatile masses. Skin: Warm, dry, no erythema, no rash. Back: No tenderness, no CVA tenderness. Extremities: No tenderness, no cyanosis, no clubbing, ROM intact, no edema. Neurologic: Alert and oriented X 3, normal motor function, normal sensory function, no focal deficits noted. Psychologic: Affect normal, judgement normal, mood normal, patient denies HI/SI.. (ZAIDA SHAY APRN) EKG: EKG: [] (ZAIDA SHAY APRN) Radiology/Procedures: Radiology/Procedures: PROCEDURE: PORTABLE CHEST 1V Chest AP portable 03/15/2020. Reason for exam: Cough. Possible pneumonia. Comparison is made with a study of 03/03/2020. Much of the haziness overlying the lungs likely relates to prominent soft tissues. There could be early infiltrate on the left. There is no consolidation or pleural fluid. Heart size is normal. IMPRESSION: Questionable early left-sided infiltrate. Electronically signed by: Chris Pemberton Jr., MD (03/15/2020 3:36 PM) (ZAIDA SHAY APRN) Course & Med Decision Making: Course & Med Decision Making Pertinent Labs and Imaging studies reviewed. (See chart for details) 44-year-old female presents emergency department complaining of a yellow/green large amount of productive sputum while coughing that started yesterday morning. Patient states that she coughs so hard that her throat hurts while she coughs and she becomes a little dizzy. Patient denies passing out or syncopal episodes. Patient states that her throat does not hurt when she is not coughing. Patient states that she was admitted to the hospital on February 18 for left lower lobe pneumonia but had to leave the hospital the next day because she had to take care of her granddaughter whom she has primary custody of. Patient states that she was taken Keflex at home and finish the regimen on or around 04 March. Patient fears that her pneumonia has returned as she states she feels the same as when she was admitted to the hospital. Vital signs were reviewed, labs reviewed, imaging was performed which was concerning for a possible left lower lobe infiltrate. Reviewed case with Dr. Nino whom agreed to admit patient and assume care with diagnosis of left lower lobe pneumonia and COVID19 PUI. When swabbing patient for COVID-19 study, patient indicated she has severe anxiety with nasal swabs from a previous traumatic experience. Patient requested something for anxiety. Patient was given 1/2 mg Ativan prior to COVID testing. Discussed with patient admission to hospital and if she could stay versus having to take care of her granddaughter at home. Patient states that she does have someone who can care for her granddaughter and she is willing to stay and be treated for her pneumonia. Patient has no further questions or concerns. (ZAIDA SHAY APRN) Dragon Disclaimer: Dragon Disclaimer: This electronic medical record was generated, in whole or in part, using a voice recognition dictation system. (ZAIDA SHAY APRN) Departure Departure Impression: Primary Impression: LLL pneumonia Qualified Codes: J18.9 - Pneumonia, unspecified organism Additional Impression: Person under investigation for COVID-19 Disposition: ADMITTED INPATIENT Admitting Physician: ANISH (Dr. Nino) (ZAIDA SHAY APRN) Condition: GUARDED Referrals: AIDE REID APRN (PCP) Justicifation of Admission Dx: Justifications for Admission: Justification of Admission Dx: Yes Comments: LEFT LOWER LOBE PNEUMONIA, COVID-19 PUI (ZAIDA SHAY APRN) Attending Signature Attending Signature I have reviewed the PA/RN PRIMARY CARE's note and plan of care. I was available for consultation as needed during the patient's visit in the emergency department. I agree with the clinical impression, plan, and disposition. (ZAIDA ANGELES DO) ZAIDA SHAY APRN Mar 15, 2020 14:16 ZAIDA ANGELES DO Mar 16, 2020 06:38
[2020-03-15 15:12] LABS: BASO # 0.2 x10^3/uL (0.0-0.2); BASO % 2 % (0-3); EOS # 0.4 x10^3/uL (0.0-0.7); EOS % 4 % (0-3); HEMATOCRIT 28.7 % (36.0-47.0); HEMOGLOBIN 8.5 g/dL (12.0-15.5); LYMPH # 2.1 x10^3/uL (1.0-4.8); LYMPH % 20 % (24-48); MEAN CORPUSCULAR HEMOGLOBIN 19 pg (25-35); MEAN CORPUSCULAR HGB CONC 30 g/dL (31-37); MEAN CORPUSCULAR VOLUME 63 fL (79-100); MONO # 0.6 x10^3/uL (0.0-1.1); MONO % 6 % (0-9); NEUT # 7.3 x10^3/uL (1.8-7.7); NEUT % 69 % (31-73); PLATELET COUNT 401 x10^3/uL (140-400); RED BLOOD COUNT 4.59 x10^6/uL (3.50-5.40); RED CELL DISTRIBUTION WIDTH 20.9 % (11.5-14.5); WHITE BLOOD COUNT 10.5 x10^3/uL (4.0-11.0)
[2020-03-15 15:19] LABS: CALCIUM 8.5 mg/dL (8.5-10.1); GFR 59.7
[2020-03-15 15:25] LABS: ALBUMIN 3.1 g/dL (3.4-5.0); ALBUMIN/GLOBULIN RATIO 0.8 (1.0-1.7); TOTAL BILIRUBIN 0.2 mg/dL (0.2-1.0)
--- NOTE | 2020-03-15 15:39 | RAD ---
Chest AP portable 03/15/2020. Reason for exam: Cough. Possible pneumonia. Comparison is made with a study of 03/03/2020. Much of the haziness overlying the lungs likely relates to prominent soft tissues. There could be early infiltrate on the left. There is no consolidation or pleural fluid. Heart size is normal. IMPRESSION: Questionable early left-sided infiltrate. Electronically signed by: Chris Pemberton Jr., MD (03/15/2020 3:36 PM) [id number]
[2020-03-15 15:56] LABS: ANISOCYTOSIS MOD; HYPOCHROMIA MOD; MICROCYTOSIS MARKED; PLT ESTIMATE ADEQUATE (ADEQUATE); POLYCHROMASIA SLIGHT
[2020-03-15] MEDS ORDERED: cefTRIAXone IV Push 1 GM VIAL. IVP ONE (18:30)
[2020-03-15] MEDS ORDERED: AZITHRMYCN 500MG IVPB FOR OMNI 250 ML IV ONE (18:30)
[2020-03-15] MEDS ORDERED: ALPRAZolam 0.5 MG TABLET PO ONE (20:15)
[2020-03-15] MEDS ORDERED: oxyCODONE IR 5 MG TABLET PO ONE (20:15)
[2020-03-15 22:18] VITALS: BP 134/79
[2020-03-16] VITALS (7 sets, daily range): BP systolic 118–140; BP diastolic 58–91
[2020-03-16] MEDS: ALPRAZolam 0.5 MG TABLET PO SCH (15:54)
[2020-03-16] MEDS: VITAMIN B COMPLEX TABLET. PO SCH (15:54)
[2020-03-16] MEDS: lamoTRIgine 100 MG TABLET. PO SCH (15:54)
[2020-03-16] MEDS: GABAPENTIN 400 MG CAPSULE. PO SCH (15:54)
--- NOTE | 2020-03-16 16:45 | NUR ---
SW following. Reviewed chart and spoke with RN. SW familiar with this pt from previous admission. Spoke with pt who is from home alone but does help care for her granddaughter at times. Pt on room air. Pt on oral medications. Pt COVID pending. SW referral for completion of advanced directives. SW provided paperwork to pt and encouraged completion. SW to continue following.
[2020-03-16] MEDS: oxyCODONE IR 5 MG TABLET PO PRN (16:47)
--- NOTE | 2020-03-16 18:27 | PDOC1 ---
History and Physical Date of Admission: Date of Admission DATE: 03/16/20 TIME: 18:13 Chief Complaint: Problems: (1) Person under investigation for COVID-19 (2) LLL pneumonia (3) Headache (4) Microcytic anemia Chief Complain: cough and headache History of Present Illness: Reason for Visit: cough and headache HPI: 44 year old female who presents with complaints of productive cough that started last Monday morning. Patient states that her sputum is yellow-green colored large amount and easy to bring up and expel. Patient states that she gets lightheaded when she coughs, however denies any syncopal episodes. Patient states that her head hurts when she coughs worse than normal. Patient states that she suffers from chronic daily headaches that she is currently taking 50 mg 3 times a day of amitriptyline ordered by her primary care doctor for pain control. Patient is requesting a Toradol shot for increased head pain. Patient is worried that she might have pneumonia again as she reports having pneumonia on February 182019. Patient denies any fever or chills, any vision changes, any nasal congestion, does complain of sore throat with cough. Patient denies any shortness of breath. Patient denies any chest pain, however does complain of lower rib pain when she coughs hard. Patient denies any extremity edema. She denies any abdominal pain nausea vomiting or diarrhea or constipation. Patient denies any problems urinating, denies any back pain, joint pains, skin rashes. Patient denies any focal weaknesses or sensory changes. Patient denies any swelling of her glands. Patient denies any recent depressions or anxieties or recent life changes. Patient states no one else in her home with the same symptoms Past Medical/Surgical History: PMH/PSH: Past Medical History * Anxiety * Arthritis * Bipolar * Depression * Hypertension * Migraines Allergies: Allergies: Coded Allergies: aspirin (Verified Allergy, Severe, SOB, 10/01/13) ibuprofen (Verified Allergy, Severe, SOB, 10/01/13) fish derived (Verified Allergy, Unknown, ANAPHYLAXIS, 02/17/20) "SEAFOOD" Family History: Family History: None Social History: Social History: Smoking Status: Current Every Day Smoker Alcohol Use: None Drug Use: Marijuana Current Medications: Current Medications Current Medications Ketorolac Tromethamine (Toradol Im) 60 mg 1X ONCE IM Last administered on 03/15/20at 15:10; Start 03/15/20 at 14:15; Stop 03/15/20 at 14:18; Status DC Ceftriaxone Sodium (Rocephin) 1 gm 1X ONCE IVP Last administered on 03/15/20at 19:18; Start 03/15/20 at 18:30; Stop 03/15/20 at 18:31; Status DC Azithromycin 250 ml @ 250 mls/hr 1X ONCE IV Last administered on 03/15/20at 19:19; Start 03/15/20 at 18:30; Stop 03/15/20 at 19:29; Status DC Lorazepam (Ativan Inj) 0.5 mg 1X ONCE IVP Last administered on 03/15/20at 18:45; Start 03/15/20 at 19:00; Stop 03/15/20 at 19:01; Status DC Oxycodone HCl (Roxicodone) 10 mg 1X ONCE PO Last administered on 03/15/20at 20:15; Start 03/15/20 at 20:15; Stop 03/15/20 at 20:16; Status DC Alprazolam (Xanax) 0.5 mg 1X ONCE PO Last administered on 03/15/20at 20:16; Start 03/15/20 at 20:15; Stop 03/15/20 at 20:16; Status DC Alprazolam (Xanax) 0.5 mg TID PO Last administered on 03/16/20at 15:54; Start 03/16/20 at 15:30 Gabapentin (Neurontin) 400 mg TID PO Last administered on 03/16/20at 15:54; Start 03/16/20 at 15:30 Lamotrigine (LaMICtal) 100 mg DAILY PO Last administered on 03/16/20at 15:54; Start 03/16/20 at 15:30 Vitamin B Complex (Rolly B) 1 tab DAILY PO Last administered on 03/16/20at 15:54; Start 03/16/20 at 15:30 Amitriptyline HCl (Elavil) 50 mg QHS PO ; Start 03/16/20 at 21:00 Oxycodone HCl (Roxicodone) 10 mg TID PRN PRN PO PAIN Last administered on 03/16/20at 16:47; Start 03/16/20 at 16:15 Active Scripts Active Proair Hfa Inhaler (Albuterol Sulfate) 8.5 Gm Hfa.aer.ad 1 Puff INH PRN Q6HRS PRN 7 Days [place] 5-325 Tablet (Acetaminophen/Hydrocodone Bitart) 1 Each Tablet 1-2 Tab PO Q4-6HRS PRN Keflex (Cephalexin) 500 Mg Capsule 1 Cap PO TID 7 Days Vitamin D2 (Ergocalciferol (Vitamin D2)) 50,000 Unit Capsule 50,000 Unit PO WEEKLY B Complex (Vitamin B Complex) 1 Each Tablet 1 Each PO DAILY Reported Xanax (Alprazolam) 0.5 Mg Tablet 1 Tab PO TID Omeprazole 20 Mg Tablet.dr 1 Tab PO DAILY Gabapentin 600 Mg Tablet 600 Mg PO TID Oxycodone Hcl Immed.release (Oxycodone Hcl) 10 Mg Tablet 1 Tab PO PRN TID PRN MDD 3 Tablet(s) 5 Days Amitriptyline Hcl 50 Mg Tablet 50 Mg PO TID Flovent 110MCG Hfa (Fluticasone Propionate) 12 Gm Aer.w.adap 110 Mcg INH PRN Omeprazole 20 Mg Capsule.dr 20 Mg PO DAILY [Wellbutrin] 75 75 PO BID Vyvanse (Lisdexamfetamine Dimesylate) 70 Mg Capsule 70 Mg PO DAILY Amitriptyline Hcl 50 Mg Tablet 50 Mg PO DAILY Lamotrigine 100 Mg Tablet 100 Mg PO DAILY Diazepam 5 Mg Tablet 5 Mg PO BID Lisinopril-Hctz 20-25 Mg Tab (Lisinopril/Hydrochlorothiazide) 1 Each Tablet 20 Mg PO DAILY Spiriva (Tiotropium [place]) 18 Mcg Cap.w.dev INH Gabapentin 400 Mg Capsule 400 Mg PO TID Oxycodone Hcl Immed.release (Oxycodone Hcl) 15 Mg Tablet Mg PO Q8HRS PRN ROS: Review of Systems Review of System REVIEW OF SYSTEMS: GENERAL: Denies weakness SKIN: No bruising, hair changes or rashes. EYES: No blurred, double or loss of vision. NOSE AND THROAT: No history of nosebleeds, hoarseness or sore throat. HEART: No history of palpitations, chest pain or shortness of breath on exertion. LUNGS: Denies cough, hemoptysis, wheezing or shortness of breath. GASTROINTESTINAL: Denies changes in appetite, nausea, vomiting, diarrhea or constipation. GENITOURINARY: No history of frequency, urgency, hesitancy or nocturia. NEUROLOGIC: Denies history of numbness, tingling, or tremor. PSYCHIATRIC: No history of panic, anxiety or depression. ENDOCRINE: No history of heat or cold intolerance, polyuria or polydipsia. EXTREMITIES: Denies joint pain, pain on walking or stiffness. Physical Exam: Vital Signs: Vital Signs Date Time Temp Pulse Resp B/P (MAP) Pulse Ox O2 Delivery O2 Flow Rate FiO2 03/16/20 15:02 97.6 75 18 131/87 (102) 97 Room Air 97.6 Physcial Exam: GEN: No apparent distress. Alert and oriented HEENT: Normal cephalic, atraumatic, external auditory canals are patent EYES: Extraocular muscles are intact, pupil are equally round and reactive to light and accommodation MUSCULOSKELETAL: Well developed , well nourished, good range of motion ENDOCRINE: No thyromegaly was palpated LYMPHATICS: No cervical chain or axillary nodes were noted HEMATOPOIETIC: No bruising NECK: Supple, no JVD, no thyromegaly was noted LUNGS: Clear to auscultation in all lung [place] without rhonchi or wheezing HEART: RRR, S!, S2 present. Peripheral pulses intact, no obvious murmurs noted ABDOMEN: Soft, nontender. Positive bowel sounds, no organomegaly, normal bowel sounds EXTREMITIES: Without clubbing, cyanosis, or edema. Pedal pulses intact. Negative Homans sign NEUROLOGIC: Normal speech and tone. A&O x 3, moves all extremities, no obvious focal deficits PSYCHIATRIC: Normal affect, normal mood. Stable SKIN: No ulcerations or rashes, good skin turgor, no jaundice VASCULAR: Good capillary refill, neurovascular bundle appears to be intact Labs: Labs: Laboratory Tests Test 03/15/20 15:00 03/15/20 15:02 White Blood Count 10.5 x10^3/uL (4.0-11.0) Red Blood Count 4.59 x10^6/uL (3.50-5.40) Hemoglobin 8.5 g/dL (12.0-15.5) Hematocrit 28.7 % (36.0-47.0) Mean Corpuscular Volume 63 fL (79-100) Mean Corpuscular Hemoglobin 19 pg (25-35) Mean Corpuscular Hemoglobin Concent 30 g/dL (31-37) Red Cell Distribution Width 20.9 % (11.5-14.5) Platelet Count 401 x10^3/uL (140-400) Neutrophils (%) (Auto) 69 % (31-73) Lymphocytes (%) (Auto) 20 % (24-48) Monocytes (%) (Auto) 6 % (0-9) Eosinophils (%) (Auto) 4 % (0-3) Basophils (%) (Auto) 2 % (0-3) Neutrophils # (Auto) 7.3 x10^3/uL (1.8-7.7) Lymphocytes # (Auto) 2.1 x10^3/uL (1.0-4.8) Monocytes # (Auto) 0.6 x10^3/uL (0.0-1.1) Eosinophils # (Auto) 0.4 x10^3/uL (0.0-0.7) Basophils # (Auto) 0.2 x10^3/uL (0.0-0.2) Platelet Estimate Adequate (ADEQUATE) Polychromasia Slight Hypochromasia Mod Anisocytosis Mod Microcytosis Marked Sodium Level 137 mmol/L (136-145) Potassium Level 4.0 mmol/L (3.5-5.1) Chloride Level 99 mmol/L (98-107) Carbon Dioxide Level 30 mmol/L (21-32) Anion Gap 8 (6-14) Blood Urea Nitrogen 9 mg/dL (7-20) Creatinine 1.0 mg/dL (0.6-1.0) Estimated GFR (Cockcroft-Gault) 59.7 BUN/Creatinine Ratio 9 (6-20) Glucose Level 91 mg/dL (70-99) Calcium Level 8.5 mg/dL (8.5-10.1) Total Bilirubin 0.2 mg/dL (0.2-1.0) Aspartate Amino Transf (AST/SGOT) 16 U/L (15-37) Alanine Aminotransferase (ALT/SGPT) 11 U/L (14-59) Alkaline Phosphatase 130 U/L (46-116) Total Protein 7.0 g/dL (6.4-8.2) Albumin 3.1 g/dL (3.4-5.0) Albumin/Globulin Ratio 0.8 (1.0-1.7) Group A Streptococcus Rapid Negative (NEGATIVE) Assessment/Plan Assessment/Plan Assessment and plan Patient coming in with for a left lower lobe pneumonia Continue empiric antibiotics Follow-up with blood and sputum cultures Continue regular diet Pending ferritin levels for anemia Pending COVID testing results Justicifation of Admission Dx: Justifications for Admission: Justification of Admission Dx: Yes SALMA WALTERS MD Mar 16, 2020 18:27
[2020-03-16] MEDS: AZITHROMYCIN 500 MG in IV NORMAL SALINE 250ML 250 ML IV SCH (18:30)
[2020-03-16] MEDS: cefTRIAXone IV Push 1 GM VIAL. IVP SCH (18:47)
[2020-03-16] MEDS ORDERED: AMITRIPTYLINE HCL 25 MG TABLET. PO SCH (21:00)
[2020-03-16] MEDS ORDERED: KETOROLAC 30 MG/ML VIAL. IM ONE (23:30)
[2020-03-17] MEDS: oxyCODONE IR 5 MG TABLET PO PRN ×3 (00:13→20:48)
[2020-03-17] MEDS: GABAPENTIN 400 MG CAPSULE. PO SCH ×4 (00:13→20:49)
[2020-03-17] MEDS: ALPRAZolam 0.5 MG TABLET PO SCH ×4 (00:14→20:48)
[2020-03-17 03:48] VITALS: BP 133/68
[2020-03-17 07:39] VITALS: BP 121/51
[2020-03-17 08:48] LABS: BASO # 0.1 x10^3/uL (0.0-0.2); BASO % 1 % (0-3); EOS # 0.5 x10^3/uL (0.0-0.7); EOS % 5 % (0-3); HEMOGLOBIN 7.7 g/dL (12.0-15.5); LYMPH # 3.3 x10^3/uL (1.0-4.8); LYMPH % 35 % (24-48); MEAN CORPUSCULAR HEMOGLOBIN 18 pg (25-35); MEAN CORPUSCULAR HGB CONC 29 g/dL (31-37); MEAN CORPUSCULAR VOLUME 64 fL (79-100); MONO # 0.6 x10^3/uL (0.0-1.1); MONO % 6 % (0-9); NEUT % 53 % (31-73); PLATELET COUNT 359 x10^3/uL (140-400); RED BLOOD COUNT 4.22 x10^6/uL (3.50-5.40); RED CELL DISTRIBUTION WIDTH 20.7 % (11.5-14.5); WHITE BLOOD COUNT 9.5 x10^3/uL (4.0-11.0)
[2020-03-17] MEDS: lamoTRIgine 100 MG TABLET. PO SCH (08:54)
[2020-03-17] MEDS: VITAMIN B COMPLEX TABLET. PO SCH (08:54)
[2020-03-17 09:44] LABS: CALCIUM 8.1 mg/dL (8.5-10.1); GFR 59.7; MAGNESIUM 2.6 mg/dL (1.8-2.4); PHOSPHORUS 4.8 mg/dL (2.6-4.7)
[2020-03-17] MEDS: AMITRIPTYLINE HCL 25 MG TABLET. PO SCH ×2 (09:52→20:48)
[2020-03-17 10:28] LABS: POTASSIUM 3.9 mmol/L (3.5-5.1)
[2020-03-17 11:09] VITALS: BP 137/65
[2020-03-17] MEDS: KETOROLAC 15 MG/ML VIAL. IVP PRN (14:03)
[2020-03-17 15:14] VITALS: BP 142/67
--- NOTE | 2020-03-17 15:23 | NUR ---
SW following. Reviewed chart and spoke with RN and CM. Pt not ready for discharge per Dr. Garcia. Spoke with pt again today and encouraged completion of advanced directives so that they can be notarized prior to discharge. Pt COVID negative. Pt on room air and IV abx. SW to continue following.
--- NOTE | 2020-03-17 16:19 | PDOC ---
[facility] PROGRESS NOTE Chief Complaint Chief Complaint (1) Person under investigation for COVID-19 (2) LLL pneumonia (3) Headache (4) Microcytic anemia History of Present Illness History of Present Illness 44 year old female who presents with complaints of productive cough that started last Monday morning. Patient states that her sputum is yellow-green colored large amount and easy to bring up and expel. Patient states that she gets lightheaded when she coughs, however denies any syncopal episodes. Patient states that her head hurts when she coughs worse than normal. Patient states that she suffers from chronic daily headaches that she is currently taking 50 mg 3 times a day of amitriptyline ordered by her primary care doctor for pain control. Patient is requesting a Toradol shot for increased head pain. Patient is worried that she might have pneumonia again as she reports having pneumonia on February 182019. Patient denies any fever or chills, any vision changes, any nasal congestion, does complain of sore throat with cough. Patient denies any shortness of breath. Patient denies any chest pain, however does complain of lower rib pain when she coughs hard. Patient denies any extremity edema. She denies any abdominal pain nausea vomiting or diarrhea or constipation. Patient denies any problems urinating, denies any back pain, joint pains, skin rashes. Patient denies any focal weaknesses or sensory changes. Patient denies any swelling of her glands. Patient denies any recent depressions or anxieties or recent life changes. Patient states no one else in her home with the same symptoms 03/17/2020 Patient seen and examined at bedside. No acute events overnight. Patient is breathing better without any O2 requirements. Tolerating diet and ambulating without any difficulties. Vitals/I&O Vitals/I&O: Vital Signs Date Time Temp Pulse Resp B/P (MAP) Pulse Ox O2 Delivery O2 Flow Rate FiO2 03/17/20 15:14 98.1 81 18 142/67 (92) 98 Room Air 98.1 I & O 03/16/20 03/16/20 03/17/20 15:00 23:00 07:00 Intake Total 600 ml 350 ml 200 ml Balance 600 ml 350 ml 200 ml Physical Exam Physical Exam: GENERAL: Patient is alert and awake. NAD HEENT: Moist mucous membranes. No scleral icterus or obvious cervical lymphadenopathy CV: RRR. No murmurs rubs or gallops. Unable to appreciate S3 or S4 PULM: Bilaterally clear to auscultation. Chest expanding equally bilaterally without use of accessory muscles. ABD: Soft and nondistended on visualization and palpation. Normoactive bowel sounds heard. EXTREMITIES: No pedal edema seen. No warmth or tenderness upon touch. NEURO: Full ROM in all extremities. normal strength on upper extremities. Labs Labs: Laboratory Tests Test 03/17/20 03:40 White Blood Count 9.5 x10^3/uL (4.0-11.0) Red Blood Count 4.22 x10^6/uL (3.50-5.40) Hemoglobin 7.7 g/dL (12.0-15.5) Hematocrit 27.0 % (36.0-47.0) Mean Corpuscular Volume 64 fL (79-100) Mean Corpuscular Hemoglobin 18 pg (25-35) Mean Corpuscular Hemoglobin Concent 29 g/dL (31-37) Red Cell Distribution Width 20.7 % (11.5-14.5) Platelet Count 359 x10^3/uL (140-400) Neutrophils (%) (Auto) 53 % (31-73) Lymphocytes (%) (Auto) 35 % (24-48) Monocytes (%) (Auto) 6 % (0-9) Eosinophils (%) (Auto) 5 % (0-3) Basophils (%) (Auto) 1 % (0-3) Neutrophils # (Auto) 5.0 x10^3/uL (1.8-7.7) Lymphocytes # (Auto) 3.3 x10^3/uL (1.0-4.8) Monocytes # (Auto) 0.6 x10^3/uL (0.0-1.1) Eosinophils # (Auto) 0.5 x10^3/uL (0.0-0.7) Basophils # (Auto) 0.1 x10^3/uL (0.0-0.2) Sodium Level 142 mmol/L (136-145) Potassium Level 3.9 mmol/L (3.5-5.1) Chloride Level 103 mmol/L (98-107) Carbon Dioxide Level 29 mmol/L (21-32) Anion Gap 10 (6-14) Blood Urea Nitrogen 12 mg/dL (7-20) Creatinine 1.0 mg/dL (0.6-1.0) Estimated GFR (Cockcroft-Gault) 59.7 Glucose Level 83 mg/dL (70-99) Calcium Level 8.1 mg/dL (8.5-10.1) Phosphorus Level 4.8 mg/dL (2.6-4.7) Magnesium Level 2.6 mg/dL (1.8-2.4) Ferritin 13 ng/mL (8-252) Review of Systems Review of Systems: CONSTITUIONAL: Denies weight loss, fever and chills. HEENT: Denies changes in vision and hearing. RESPIRATORY: Denies SOB and cough. CV: Denies palpitations and CP. GI: Denies abdominal pain, nausea, vomiting and diarrhea. : Denies dysuria and urinary frequency. MSK: Denies myalgia and joint pain. SKIN: Denies rash and pruritus. NEUROLOGICAL: Denies headache and syncope. PSYCHIATRIC: Denies recent changes in mood. Denies anxiety and depression. Assessment and Plan Assessmemt and Plan Acute respiratory distress secondary to left lower lobe pneumonia Iron deficiency anemia Hypertension Depression Morbid obesity Continue with empiric antibiotics Start ferrous sulfate every Monday p.o. Patient is COVID testing is negative Comment Review of Relevant I have reviewed the following items ai (where applicable) has been applied. Medications: Current Medications Medications (Trade) Dose Ordered Sig/Cuco Route PRN Reason Start Time Stop Time Status Last Admin Dose Admin Amitriptyline HCl (Elavil) 50 mg QHS PO 03/16/20 21:00 03/17/20 09:23 DC 03/17/20 00:13 Oxycodone HCl (Roxicodone) 10 mg TID PRN PRN PO PAIN 03/16/20 16:15 03/17/20 08:54 Ceftriaxone Sodium (Rocephin) 1 gm Q24H IVP 03/16/20 18:30 03/18/20 11:00 03/16/20 18:47 Azithromycin 500 mg/Sodium Chloride 250 ml @ 250 mls/hr Q24H IV 03/16/20 18:30 03/16/20 18:30 Ketorolac Tromethamine (Toradol 30mg Vial) 30 mg 1X ONCE IM 03/16/20 23:30 03/16/20 23:31 DC 03/17/20 00:13 Amitriptyline HCl (Elavil) 50 mg BID PO 03/17/20 10:00 03/17/20 09:52 Enoxaparin Sodium (Lovenox 60mg Syringe) 60 mg Q12HR SQ 03/17/20 10:30 03/17/20 10:24 Ketorolac Tromethamine (Toradol 15mg Vial) 15 mg PRN Q12HR PRN IVP MODERATE PAIN 03/17/20 13:45 03/22/20 13:44 03/17/20 14:03 Justicifation of Admission Dx: Justifications for Admission: Justification of Admission Dx: Yes SALMA WALTERS MD Mar 17, 2020 16:19
[2020-03-17] MEDS: AZITHROMYCIN 500 MG in IV NORMAL SALINE 250ML 250 ML IV SCH (18:42)
[2020-03-17] MEDS: cefTRIAXone IV Push 1 GM VIAL. IVP SCH (18:42)
[2020-03-17 19:35] VITALS: BP 119/62
[2020-03-17] MEDS ORDERED: DOCUSATE SODIUM 100 MG CAPSULE. PO PRN (19:45)
[2020-03-17] MEDS ORDERED: SENNOSIDES 8.6 MG TABLET PO PRN (19:45)
[2020-03-17] MEDS: LACTOBACILLUS RHAMNOSUS GG 1 CAPSULE. PO SCH (20:48)
[2020-03-17 22:33] VITALS: BP 107/77
[2020-03-18] MEDS: KETOROLAC 15 MG/ML VIAL. IVP PRN (03:23)
[2020-03-18 03:27] VITALS: BP 153/84
[2020-03-18 07:36] VITALS: BP 128/57
[2020-03-18] MEDS: VITAMIN B COMPLEX TABLET. PO SCH (10:13)
[2020-03-18] MEDS: ALPRAZolam 0.5 MG TABLET PO SCH (10:14)
[2020-03-18] MEDS: oxyCODONE IR 5 MG TABLET PO PRN (10:14)
[2020-03-18] MEDS: LACTOBACILLUS RHAMNOSUS GG 1 CAPSULE. PO SCH (10:14)
[2020-03-18] MEDS: lamoTRIgine 100 MG TABLET. PO SCH (10:14)
[2020-03-18] MEDS: GABAPENTIN 400 MG CAPSULE. PO SCH (10:14)
[2020-03-18] MEDS: AMITRIPTYLINE HCL 25 MG TABLET. PO SCH (10:15)
[2020-03-18 11:30] VITALS: BP 120/80
[2020-03-18] MEDS ORDERED: AMOX250S20 PO (11:36)
[2020-03-18] MEDS ORDERED: FERR325T14 PO (11:41)
--- NOTE | 2020-03-18 11:43 | DISCH ---
DISCHARGE INSTRUCTIONS Condition on Discharge Condition on Discharge: Stable Activity After Discharge Activity Instructions for Disc: Activity as tolerated Exercise Instruction after Dis: Exercise per therapy Weight Bearing Status after Di: No restrictions Diet after Discharge Diet after Discharge: Cardiac Diet Texture: Regular Liquid Texture: Thin Liquid Swallowing Supervision: None needed Wound Incision Care Wound/Incision Care: No wound care needed Checks after Discharge Checks after discharge: Check your Temp as needed Follow-Up Follow up with: Follow-up with your PCP Treatment/Equipment after DC Adaptive Equipment Issued: None SALMA WALTERS MD Mar 18, 2020 11:42
--- NOTE | 2020-03-18 15:52 | NUR ---
Discharge Note: MARY JANE PACHECO [address] Discharge instructions and discharge home medications reviewed with Patient and a copy given. All questions have been answered and understanding verbalized. The following instructions and handouts were given: patient visit report, medication information, education. Discontinued lines and drains: peripheral IV, tip intact. Patient discharged to home with self care via private vehicle. Patient left unit awake, in stable condition, with all personal belongings.
--- NOTE | 2020-03-18 16:26 | PDOC3 ---
[facility]-Discharge Summary Date of Admission: Date of Admission: Mar 15, 2020 Date of Discharge: Date of Discharge: Mar 18, 2020 Admission Diagnosis: Admitting Diagnosis: (1) Person under investigation for COVID-19 (2) LLL pneumonia (3) Headache (4) Microcytic anemia Discharge Diagnosis: Discharge Diagnosis: LLL pneumonia Headache Microcytic anemia COVID ruled out Hospital Course: Hospital Course: 44 year old female who presents with complaints of productive cough that started last Monday morning. Patient states that her sputum is yellow-green colored large amount and easy to bring up and expel. Patient states that she gets lightheaded when she coughs, however denies any syncopal episodes. Patient states that her head hurts when she coughs worse than normal. Patient states that she suffers from chronic daily headaches that she is currently taking 50 mg 3 times a day of amitriptyline ordered by her primary care doctor for pain control. Patient's breathing remained stable throughout her hospital stay without requiring any O2 therapy. Patient was tested for COVID and results are negative. Patient was also found to have severe microcytic anemia in which her ferritin was sent off and she did have low ferritin levels. Patient will be sent on iron supplementation. Patient was ambulating and tolerating diet on day of discharge. Rest of her hospital course was uneventful Disposition: Disposition/Orders: D/C to Home Activity: Activity: Resume previous activity Diet: Diet: Regular (Patient will need to continue 3 days of Augmentin and continue with iron supplementation.), Cardiac Medications: Home Meds Active Scripts Ferrous Sulfate (FERROUS SULFATE) 325 Mg Tablet, 325 MG PO QMWF for iron deficiency anemia for 90 Days, #90 TAB Prov:SALMA WALTERS MD 03/18/20 Amoxicillin/Potassium Clav (AUGMENTIN 250-62.5 MG/5 ML) 250 Mg/5 Ml Susp.recon, 250 MG PO BID for Pneumonia for 3 Days, #6 SUSPENSION 0 Refills Prov:SALMA WALTERS MD 03/18/20 Ergocalciferol (Vitamin D2) (VITAMIN D2) 50,000 Unit Capsule, 71344 UNIT PO WEEKLY, #8 CAP Prov:SUSIE SINGH MD 10/03/17 Vitamin B Complex (B COMPLEX) 1 Each Tablet, 1 EACH PO DAILY, #100 TAB Prov:SUSIE SINGH MD 10/03/17 Reported Medications Alprazolam (XANAX) 0.5 Mg Tablet, 1 TAB PO TID for anxiety, #90 TAB 02/17/20 Omeprazole (OMEPRAZOLE) 20 Mg Tablet.dr, 1 TAB PO DAILY for gerd, #90 TAB 1 Refill 02/17/20 Gabapentin (GABAPENTIN) 600 Mg Tablet, 600 MG PO TID for NEUROGENIC PAIN, TAB 02/17/20 Amitriptyline Hcl (AMITRIPTYLINE HCL) 50 Mg Tablet, 50 MG PO TID for migraines, TAB 02/17/20 Fluticasone Propionate (FLOVENT 110MCG HFA) 12 Gm Aer.w.adap, 110 MCG INH PRN for WHEEZING 10/02/17 [Wellbutrin] 75 No Conflict Check, 75 PO BID 10/02/17 Lisdexamfetamine Dimesylate (VYVANSE) 70 Mg Capsule, 70 MG PO DAILY 10/02/17 Lamotrigine (LAMOTRIGINE) 100 Mg Tablet, 100 MG PO DAILY 10/02/17 Diazepam (DIAZEPAM) 5 Mg Tablet, 5 MG PO BID 10/02/17 Lisinopril/Hydrochlorothiazide (LISINOPRIL-HCTZ 20-25 MG TAB) 1 Each Tablet, 20 MG PO DAILY 10/02/17 Gabapentin (Gabapentin) 400 Mg Capsule, 400 MG PO TID 10/02/17 Discontinued Reported Medications Oxycodone Hcl (OXYCODONE HCL IMMED.RELEASE) 10 Mg Tablet, 1 TAB PO PRN TID PRN for pain MDD 3 Tablet(s) for 5 Days, #15 TAB 0 Refills 02/17/20 Omeprazole (OMEPRAZOLE) 20 Mg Capsule.dr, 20 MG PO DAILY 10/02/17 Amitriptyline Hcl (AMITRIPTYLINE HCL) 50 Mg Tablet, 50 MG PO DAILY 10/02/17 Tiotropium [place] (SPIRIVA) 18 Mcg Cap.w.dev, INH 10/02/17 Oxycodone Hcl (OXYCODONE HCL IMMED.RELEASE) 15 Mg Tablet, MG PO Q8HRS PRN for PAIN 10/02/17 Discontinued Scripts Albuterol Sulfate (PROAIR HFA INHALER) 8.5 Gm Hfa.aer.ad, 1 PUFF INH PRN Q6HRS PRN for SHORTNESS OF BREATH for 7 Days, #1 INHALER 0 Refills Prov:PATRICIA PANTOJA 03/03/20 Hydrocodone/Apap 5-325 (NORCO 5-325 TABLET) 1 Each Tablet, 1-2 TAB PO Q4-6HRS PRN for PAIN, #15 TAB Prov:PATRICIA PANTOJA 03/03/20 Cephalexin (KEFLEX) 500 Mg Capsule, 1 CAP PO TID for 7 Days, #21 CAP 0 Refills Prov:PATRICIA PANTOJA 03/03/20 Scheduled Alprazolam (Xanax), 1 TAB PO TID, (Reported) Amitriptyline Hcl (Amitriptyline Hcl), 50 MG PO TID, (Reported) Amoxicillin/Potassium Clav (Augmentin 250-62.5 Mg/5 Ml), 250 MG PO BID Diazepam (Diazepam), 5 MG PO BID, (Reported) Ergocalciferol (Vitamin D2) (Vitamin D2), 50,000 UNIT PO WEEKLY Ferrous Sulfate (Ferrous Sulfate), 325 MG PO QMWF Gabapentin (Gabapentin), 400 MG PO TID, (Reported) Gabapentin (Gabapentin), 600 MG PO TID, (Reported) Lamotrigine (Lamotrigine), 100 MG PO DAILY, (Reported) Lisdexamfetamine Dimesylate (Vyvanse), 70 MG PO DAILY, (Reported) Lisinopril/Hydrochlorothiazide (Lisinopril-Hctz 20-25 Mg Tab), 20 MG PO DAILY, (Reported) Omeprazole (Omeprazole), 1 TAB PO DAILY, (Reported) Vitamin B Complex (B Complex), 1 EACH PO DAILY [Wellbutrin], 75 PO BID, (Reported) Scheduled PRN Fluticasone Propionate (Flovent 110MCG Hfa), 110 MCG INH for WHEEZING, (Reported) Discontinued Medications Albuterol Sulfate (Proair Hfa Inhaler), 1 PUFF INH PRN Q6HRS PRN for SHORTNESS OF BREATH Amitriptyline Hcl (Amitriptyline Hcl), 50 MG PO DAILY, (Reported) Cephalexin (Keflex), 1 CAP PO TID Hydrocodone/Apap 5-325 ([place] 5-325 Tablet), 1-2 TAB PO Q4-6HRS PRN for PAIN Omeprazole (Omeprazole), 20 MG PO DAILY, (Reported) Oxycodone Hcl (Oxycodone Hcl Immed.release), MG PO Q8HRS PRN for PAIN, (Reported) Oxycodone Hcl (Oxycodone Hcl Immed.release), 1 TAB PO PRN TID PRN for pain, (Reported) Tiotropium [place] (Spiriva), INH, (Reported) Total Time: Total Time: Total time spent over 25 minutes Justicifation of Admission Dx: Justifications for Admission: Justification of Admission Dx: Yes SALMA WALTERS MD Mar 18, 2020 16:26
--- NOTE | 2020-03-18 16:47 | NUR ---
SW following. Reviewed chart and spoke with RN and CM. Pt ready for discharge home today per Dr. Garcia. Pt on room air and oral medications. No further SW needs at this time.
[2020-03-19] MEDS ORDERED: FERROUS SULFATE ORAL 300 MG/5 ML SOLUTION. PO SCH (16:00)
== END 2020-03-18 14:15 | disposition home or self-care (01) | DRG 194 ==
LOC: ER 13:06 → ED HOLD 17:20 → 6 SOUTH 19:14
PROVIDERS: ADMIT Preventive Medicine Public Health & General Preventive Medicine; ATTEND Preventive Medicine Public Health & General Preventive Medicine
DX: J18.9 Pneumonia, unspecified organism (principal); Z68.43 Body mass index [BMI] 50.0-59.9, adult; R06.03 Acute respiratory distress; D50.9 Iron deficiency anemia, unspecified; E66.01 Morbid (severe) obesity due to excess calories; F12.90 Cannabis use, unspecified, uncomplicated; F17.200 Nicotine dependence, unspecified, uncomplicated; F32.9 Major depressive disorder, single episode, unspecified; I10 Essential (primary) hypertension; Z20.828 Contact with and (suspected) exposure to other viral communicable diseases; F41.9 Anxiety disorder, unspecified; G43.909 Migraine, unspecified, not intractable, without status migrainosus; G89.29 Other chronic pain; M19.90 Unspecified osteoarthritis, unspecified site; Z79.899 Other long term (current) drug therapy; Z88.8 Allergy status to other drugs, medicaments and biological substances; Z91.013 Allergy to seafood
CPT/HCPCS: 36415; 71045; 80048; 80053; 82728; 83735; 84100; 85025; 87040; 87070; 87880; 96372; 96374; 99406; J0456; J0696; J1650; J1885; J2060; J7050; 99285-25; G0378; J7030; U0003-CS

== ENCOUNTER 2020-05-05 18:06 | Emergency (ER) | payer OTHER ==
[~2020-05-05] VITALS: Ht 167.6 cm; Wt 141.0 kg
[~2020-05-05 18:06] MED LIST changes: +AMOX250S20 PO; +FERR325T14 PO
--- NOTE | 2020-05-05 19:01 | RAD ---
Exam: Chest one view INDICATION: Short of air TECHNIQUE: Frontal view of the chest Comparisons: 03/15/2020 FINDINGS: The cardiomediastinal silhouette and pulmonary vessels are within normal limits. The lung and pleural spaces are clear. IMPRESSION: No acute cardiopulmonary process. Electronically signed by: Zi Pop MD (05/05/2020 6:58 PM) [id number]
[2020-05-05] MEDS ORDERED: IV NORMAL SALINE 1000ML BAG 1,000 ML IV ONE (20:15)
--- NOTE | 2020-05-05 20:25 | PHYS DOC ---
Past Medical History Past Medical History: Anxiety, Arthritis, Asthma, Bipolar, Depression, Hy pertension, Migraines Additional Past Medical Histor: DDD-chronic back and neck pain, nerve damage, TBI Past Surgical History: Cervical Fusion, Tubal ligation Additional Past Surgical Histo: stomach, jaw, R ankle, R foot, MRSA in breast, exp lap, neck surgery Smoking Status: Current Every Day Smoker Alcohol Use: None Drug Use: None, Marijuana General Adult EDM: Chief Complaint: SHORTNESS OF BREATH HPI: HPI: 44-year-old female presents with report of progressive dyspnea with exertion that is been ongoing for the past 4 days. Reports it takes a while for her to catch her breath after exerting herself. Reports this seems to go away. Patient does report history of asthma. Reports she has been using her albuterol MDI as well as her nebulizer machine without significant improvement. Patient reports nonproductive cough which she reports is "chronic ". Denies any fever or chills. Denies nausea or vomiting. Denies any chest pain. Patient denies leg swelling or calf tenderness. Denies history of PE/DVT. Patient denies known exposure to COVID-19. Review of Systems: Review of Systems: Constitutional: Denies fever or chills Eyes: Denies redness or eye pain HENT: Denies nasal congestion or sore throat Respiratory: Reports nonproductive cough and shortness of breath which is worse with exertion Cardiovascular: Denies chest pain; reports palpitations GI: Denies abdominal pain, nausea, or vomiting : Denies dysuria or hematuria Musculoskeletal: Denies back pain or joint pain Integument: Denies rash or skin lesions Neurologic: Denies headache, focal weakness or sensory changes Complete systems were reviewed and found to be within normal limits, except as documented in this note. Heart Score: HEART Score for Chest Pain: HEART Score for Chest Pain Response (Comments) Value History Slighlty/Non-Suspicious 0 ECG Normal 0 Age >45 - < 65 1 Risk Factors >3 Risk Factors or Hx CAD 2 Troponin < Normal Limit 0 Total 3 Risk Factors: Risk Factors: DM, Current or recent (<one month) smoker, HTN, HLP, family history of CAD, obesity. Risk Scores: Score 0 - 3: 2.5% MACE over next 6 weeks - Discharge Home Score 4 - 6: 20.3% MACE over next 6 weeks - Admit for Clinical Observation Score 7 - 10: 72.7% MACE over next 6 weeks - Early Invasive Strategies Current Medications: Current Medications Medications (Trade) Dose Ordered Sig/Cuco Start Time Stop Time Status Last Admin Dose Admin Lorazepam (Ativan Inj) 0.5 mg 1X ONCE 05/05/20 20:15 05/05/20 20:16 DC Sodium Chloride 1,000 ml @ 1,000 mls/hr 1X ONCE 05/05/20 20:15 05/05/20 21:14 Allergies: Allergies: Allergies Coded Allergies Type Severity Reaction Last Updated Verified aspirin Allergy Severe SOB 10/01/13 Yes ibuprofen Allergy Severe SOB 10/01/13 Yes fish derived Allergy Unknown ANAPHYLAXIS 02/17/20 Yes Physical Exam: PE: Constitutional: Well developed, obese, no acute distress, non-toxic appearance HENT: Normocephalic, atraumatic Eyes:Conjunctiva normal, no discharge Neck: Normal range of motion, supple Lungs & Thorax: Equal chest rise and fall, no respiratory distress Abdomen: Soft, no tenderness Skin: Warm, dry, no erythema, no rash Extremities: No tenderness, ROM intact, no edema Neurologic: Alert and oriented X 3, no focal deficits noted Psychologic: Affect normal, judgment normal Current Patient Data: Vital Signs: Vital Signs Date Time Temp Pulse Resp B/P (MAP) Pulse Ox O2 Delivery O2 Flow Rate FiO2 05/05/20 18:51 98.2 97 18 114/77 (89) 100 Room Air 98.2 EKG: EKG: @2015 NSR at 96bpm, NO ST elevation, QRS 80ms, QT/QTc 376/476ms Radiology/Procedures: Radiology/Procedures: PROCEDURE: CHEST AP ONLY Exam: Chest one view INDICATION: Short of air TECHNIQUE: Frontal view of the chest Comparisons: 03/15/2020 FINDINGS: The cardiomediastinal silhouette and pulmonary vessels are within normal limits. The lung and pleural spaces are clear. IMPRESSION: No acute cardiopulmonary process. Electronically signed by: Zi Pop MD (05/05/2020 6:58 PM) [id number] Course & Med Decision Making: Course & Med Decision Making Pertinent Labs and Imaging studies reviewed. (See chart for details) Patient presents with dyspnea with exertion x4 days. Reports nonproductive cough. Denies fever or chills. Denies known exposure to COVID-19. Cannot exclude COVID-19. COVID-19 testing pending. EKG stable. Labs obtained and posted to chart. Troponin within normal limits. D-dimer also negative. Chest x-ray without acute process. Patient stable for discharge with outpatient follow-up with PCP. Discussed findings and plan with patient, who acknowledges understanding and agreement. COVID-19 CRITERIA: The patient was evaluated during the global COVID-19 pandemic, and that diagnosis was suspected/considered upon their initial presentation. Their evaluation, treatment and testing was consistent with current guidelines for patients who present with complaints or symptoms that may be related to COVID-19. Dragon Disclaimer: Dragon Disclaimer: This electronic medical record was generated, in whole or in part, using a voice recognition dictation system. Departure Departure Impression: Primary Impression: Dyspnea on exertion Additional Impression: Suspected 2019 novel coronavirus infection Disposition: HOME, SELF-CARE Condition: STABLE Referrals: AIDE REID APRN (PCP) Patient Instructions: Shortness of Breath, [id number] Additional Instructions: You have been tested for or diagnosed with COVID-19. It is an infection caused by a new type of coronavirus. COVID-19 will cause cold-like or mild flu symptoms in most. It can cause more severe symptoms like problems breathing in some. There is no treatment for COVID-19. The body will clear the infection over time. Self-care will help to ease discomfort. Steps to Take: Self-Care Rest as needed. Healthy habits may help you feel better. Steps include: Choose healthy foods including fruits and vegetables. Drink water throughout the day. Get plenty of sleep each night. If you smoke, try to quit. It may ease breathing. Avoid alcohol. Keep Others Healthy The virus can spread to others. Droplets are released every time you sneeze or cough. The droplets can get into the mouth, nose, or eyes of people near you and lead to infection. To lower the chances of spreading COVID-19 to others: Stay at home until your doctor has said it is safe to leave. If you tested positive this will mean staying isolated until both of the following are true: At least 7 days have passed since the start of illness. You are free of fever for at least 72 hours without the use of medicine. During this time: - Avoid public areas, events, or transportation. Do not return to work or school until your doctor has said it is safe to do so. - Call ahead if you need to go to a medical center. Let them know you may have COVID-19. It will help them guide you where to go. They may also ask you to wear a facemask when you come to the office. - If you call for emergency medical services, let them know you may have COVID- 19. While at home: - Try to avoid close contact with others. Stay about 6 feet away. - If possible, spend most of your time in a separate room from others. - Use a face mask if you will be in close contact with others such as sharing a room or vehicle. - Have someone wipe down common surfaces in the home. Use household automotive detailer every day on areas like doorknobs, counters, or sinks. - Cough or sneeze into a tissue. Throw the tissue away right after use. If a tissue is not available, cough or sneeze into your elbow. - Wash your hands often. Wash them after sneezing or coughing. Use soap and water and wash for at least 20 seconds. Alcohol based hand top cleaner can be used if soap and water is not available. - Do not prepare food for others. Avoid sharing personal items like forks, spoons, or toothbrushes. - Avoid close contact with pets while you are sick. There is no evidence of the virus passing to pets. This is a safety step until more is known about this virus. Isolation can be frustrating. Social interaction can help. Keep in touch with friends and family through phone and tech options. You can still interact with others in your home, just keep a safe distance of about 6 feet. Follow-up: Your doctors office will check in with you to see if there are any changes in your health. You may be asked to keep track of symptoms to share with them. They will also let you know when you are clear to be in public again. Problems to Look Out For: Contact your doctor if your recovery is not going as you expect. Get emergency care if you have problems such as: - Trouble breathing - Nonstop chest pain or pressure - Changes in awareness, confusion, or problems waking - Lips or face have bluish color - Worsening of symptoms If you think you have an emergency, call for emergency medical services right away. As taken from [facility] Justicifation of Admission Dx: Justifications for Admission: Justification of Admission Dx: N/A COVID-19 Assessment: COVID-19 Patient Risks: Age 65 or older: No Sign of co-morbidity: Yes Exp to person + for COVID: No Exp to PUI: No Travel from affected area: No Lower respiratory symptoms: Yes Fever: No PPE Use: Full PPE with N95 mask or PAPR: Yes ZAIDA ANGELES DO May 05, 2020 20:25
[2020-05-05 20:57] LABS: BASO # 0.2 x10^3/uL (0.0-0.2); BASO % 2 % (0-3); EOS # 0.1 x10^3/uL (0.0-0.7); EOS % 1 % (0-3); HEMATOCRIT 31.7 % (36.0-47.0); HEMOGLOBIN 9.1 g/dL (12.0-15.5); LYMPH # 2.2 x10^3/uL (1.0-4.8); LYMPH % 17 % (24-48); MEAN CORPUSCULAR HEMOGLOBIN 18 pg (25-35); MEAN CORPUSCULAR HGB CONC 29 g/dL (31-37); MEAN CORPUSCULAR VOLUME 62 fL (79-100); MONO # 0.8 x10^3/uL (0.0-1.1); MONO % 6 % (0-9); NEUT # 9.6 x10^3/uL (1.8-7.7); NEUT % 75 % (31-73); PLATELET COUNT 419 x10^3/uL (140-400); RED BLOOD COUNT 5.13 x10^6/uL (3.50-5.40); RED CELL DISTRIBUTION WIDTH 20.5 % (11.5-14.5); WHITE BLOOD COUNT 12.8 x10^3/uL (4.0-11.0)
[2020-05-05 21:08] LABS: PROTHROMBIN TIME PATIENT 13.2 SEC (11.7-14.0)
[2020-05-05 21:12] LABS: D-DIMER 0.43 ug/mlFEU (0.00-0.50)
[2020-05-05 21:36] LABS: CALCIUM 9.3 mg/dL (8.5-10.1); CREATININE 1.1 mg/dL (0.6-1.0); GFR 53.5; POTASSIUM 4.5 mmol/L (3.5-5.1)
[2020-05-05 21:40] LABS: ALBUMIN 3.6 g/dL (3.4-5.0); ALBUMIN/GLOBULIN RATIO 0.9 (1.0-1.7); MAGNESIUM 2.3 mg/dL (1.8-2.4); TOTAL BILIRUBIN 0.5 mg/dL (0.2-1.0); TOTAL PROTEIN 7.6 g/dL (6.4-8.2)
[2020-05-05 22:08] VITALS: BP 147/88
[2020-05-05 22:11] LABS: ANISOCYTOSIS MOD; HYPOCHROMIA MARKED; MICROCYTOSIS MARKED; PLT ESTIMATE INCREASED (ADEQUATE); POIKILOCYTOSIS SLIGHT
[2020-05-05 22:12] LABS: POLYCHROMASIA SLIGHT
--- NOTE | 2020-05-06 07:31 | EKG ---
[facility] [address] [place] [address] Test Date: 2020-05-05 Test Time: 20:15:40 Pat Name: MARY JANE PACHECO Department: Room: Gender: F [employer]bags: : 1975 Requested By: ZAIDA AGNELES Order Number: [id number] Reading MD: Measurements Intervals [place] Rate: 96 P: 12 TN: 170 QRS: 34 QRSD: 80 T: 54 QT: 376 QTc: 476 Interpretive Statements SINUS RHYTHM PROLONGED QT NO SPECIFIC ECG ABNORMALITIES RI6.02 No previous ECG available for comparison
== END 2020-05-05 22:50 | disposition home or self-care (01) ==
LOC: ER 18:06
DX: R06.02 Shortness of breath (principal); Z20.828 Contact with and (suspected) exposure to other viral communicable diseases; R05 Cough; F31.9 Bipolar disorder, unspecified; F41.9 Anxiety disorder, unspecified; J45.909 Unspecified asthma, uncomplicated; I10 Essential (primary) hypertension; G43.909 Migraine, unspecified, not intractable, without status migrainosus; F17.200 Nicotine dependence, unspecified, uncomplicated; Z88.6 Allergy status to analgesic agent; Z91.013 Allergy to seafood; Z88.8 Allergy status to other drugs, medicaments and biological substances
CPT/HCPCS: 36415; 71045; 80053; 83690; 83735; 83880; 84484; 85025; 85379; 85610; 85730; 93005; 96361; 96374; 96376; 99285; J2060; J7030

== ENCOUNTER 2021-03-11 13:50 | Emergency (ER) | payer OTHER ==
[~2021-03-11] VITALS: Ht 167.6 cm; Wt 133.6 kg
[2021-03-11 14:04] VITALS: BP 147/88
[2021-03-11] MEDS ORDERED: SULF1TAB24 PO (14:40)
--- NOTE | 2021-03-11 14:41 | PHYS DOC ---
Past Medical History Past Medical History: Anxiety, Arthritis, Asthma, Bipolar, Depression, Hy pertension, Migraines Additional Past Medical Histor: DDD-chronic back and neck pain, nerve damage, TBI, morbid obesity Past Surgical History: Cervical Fusion, Tubal ligation Additional Past Surgical Histo: stomach, jaw, R ankle, R foot, MRSA in breast, exp lap, neck surgery Smoking Status: Current Every Day Smoker Alcohol Use: None Drug Use: None, Marijuana General Adult EDM: Chief Complaint: SKIN PROBLEM HPI: HPI: Patient is a 45 year old female who presents to the ED today with an abscess on the pubic region that she noted 2 days ago. Patient states it opened up yesterday. Denies any fever. Review of Systems: Review of Systems: Constitutional: Denies fever or chills. [] Musculoskeletal: Denies back pain or joint pain. [] Integument: Reports abscess to left pubic Neurologic: Denies headache, focal weakness or sensory changes. [] Psychiatric: Denies depression or anxiety. [] Heart Score: C/O Chest Pain: N/A Risk Factors: Risk Factors: DM, Current or recent (<one month) smoker, HTN, HLP, family history of CAD, obesity. Risk Scores: Score 0 - 3: 2.5% MACE over next 6 weeks - Discharge Home Score 4 - 6: 20.3% MACE over next 6 weeks - Admit for Clinical Observation Score 7 - 10: 72.7% MACE over next 6 weeks - Early Invasive Strategies Current Medications: Current Medications Medications (Trade) Dose Ordered Sig/Cuco Start Time Stop Time Status Last Admin Dose Admin Diphtheria/ Tetanus/Acell Pertussis (ADACEL TDap SYRINGE) 0.5 ml ONCE ONCE 03/11/21 14:45 03/11/21 14:46 Allergies: Allergies: Allergies Coded Allergies Type Severity Reaction Last Updated Verified aspirin Allergy Severe SOB 10/01/13 Yes fish derived Allergy Severe ANAPHYLAXIS 05/05/20 Yes ibuprofen Allergy Severe SOB 10/01/13 Yes Physical Exam: PE: Constitutional: Well developed, well nourished, no acute distress, non-toxic appearance. [] Skin: Pubic region with an open wound roughly 2 x 2 cm with slight erythema and trace drainage. No fluctuance Back: No tenderness, no CVA tenderness. [] Extremities: No tenderness, no cyanosis, no clubbing, ROM intact, no edema. [] Neurologic: Alert and oriented X 3, normal motor function, normal sensory function, no focal deficits noted. [] Psychologic: Affect normal, judgement normal, mood normal. [] Current Patient Data: Vital Signs: Vital Signs Date Time Temp Pulse Resp B/P (MAP) Pulse Ox O2 Delivery O2 Flow Rate FiO2 03/11/21 14:04 147/88 (107) EKG: EKG: [] Radiology/Procedures: Radiology/Procedures: [] Course & Med Decision Making: Course & Med Decision Making Pertinent Labs and Imaging studies reviewed. (See chart for details) This is a 45-year-old female patient presented to the ED today with an abscess with cellulitis on the pubic region, it has already opened up. Discharged on Bactrim. Sheila Disclaimer: Sheila Disclaimer: This electronic medical record was generated, in whole or in part, using a voice recognition dictation system. Departure Departure Impression: Primary Impression: Abscess or cellulitis of groin Disposition: HOME / SELF CARE / HOMELESS Condition: STABLE Referrals: AIDE REID APRN (PCP) follow up in 1 week Patient Instructions: Abscess, Cellulitis, [id number] Additional Instructions: You have an abscess with cellulitis in your pubic region that has opened up and drained. Apply warm compresses to the area twice a day. Keep the area clean. Take the prescribed antibiotics until completed. Come back to the ED at any point condition worsens Scripts Sulfamethoxazole/Trimethoprim (BACTRIM DS TABLET) 1 Each Tablet 1 TAB PO BID for 10 Days, #20 TAB 0 Refills Prov: SHIV MESSINA APRN 03/11/21 SHIV MESSINA APRN Mar 11, 2021 14:41
[2021-03-11] MEDS ORDERED: DIPH,PERTUSS(ACELL),TET VAC/PF 0.5 ML SYRINGE. VAX IM ONE (14:45)
== END 2021-03-11 15:08 | disposition home or self-care (01) ==
LOC: ER 13:50
DX: L02.219 Cutaneous abscess of trunk, unspecified (principal); J45.909 Unspecified asthma, uncomplicated; F31.9 Bipolar disorder, unspecified; I10 Essential (primary) hypertension; G43.909 Migraine, unspecified, not intractable, without status migrainosus; F17.200 Nicotine dependence, unspecified, uncomplicated; Z87.820 Personal history of traumatic brain injury; Z88.6 Allergy status to analgesic agent; Z88.8 Allergy status to other drugs, medicaments and biological substances; Z91.013 Allergy to seafood
CPT/HCPCS: 90471; 90715; 99283-25

== ENCOUNTER 2021-04-28 13:52 | Emergency (ER) | payer OTHER ==
[~2021-04-28] VITALS: Ht 167.6 cm; Wt 138.0 kg
[~2021-04-28 13:52] MED LIST changes: +SULF1TAB24 PO
--- NOTE | 2021-04-28 17:49 | RAD ---
XR EXAM OF ANKLE_RIGHT 3VIEWS DATE: 04/28/2021 5:08 PM INDICATION: TWISTING INJURY COMPARISON: None. FINDINGS: Bones: There is no evidence of acute fracture or dislocation. Postsurgical changes of lateral malleol us ORIF and first MTP joint arthrodesis. Joints: The ankle mortise is congruent. No widening of the distal tibiofibular syndesmosis. Miscellaneous: None. IMPRESSION: No acute fracture. Electronically signed by: Selvin Goode MD (04/28/2021 5:46 PM) YOLIE
[2021-04-28 18:14] VITALS: BP 135/85
--- NOTE | 2021-04-28 18:32 | PHYS DOC ---
Past Medical History Past Medical History: Anxiety, Arthritis, Asthma, Bipolar, Depression, Hy pertension, Migraines Additional Past Medical Histor: DDD-chronic back and neck pain, nerve damage, TBI, morbid obesity Past Surgical History: Cervical Fusion, Tubal ligation Additional Past Surgical Histo: stomach, jaw, R ankle, R foot, MRSA in breast, exp lap, neck surgery Smoking Status: Current Every Day Smoker Alcohol Use: None Drug Use: None, Marijuana General Adult EDM: Chief Complaint: ANKLE PROBLEM HPI: HPI: Patient is a 45 year old female who presents with yesterday with tripped over a wire that her had drug across the backyard when she can see it and twisted her right ankle. She states that she has throbbing pain that will shoot up to the tib-fib at times. She has been up and walking on the extremity. No joint laxity. Tenderness to the medial and lateral aspect of the ankle. She rates her pain as 7 out of 10. Review of Systems: Review of Systems: Constitutional: Denies fever or chills. [] Eyes: Denies change in visual acuity. [] HENT: Denies nasal congestion or sore throat. [] Respiratory: Denies cough or shortness of breath. [] Cardiovascular: Denies chest pain or + right ankle edema. [] GI: Denies abdominal pain, nausea, vomiting, bloody stools or diarrhea. [] : Denies dysuria. [] Musculoskeletal: Denies back pain or + right ankle joint pain. [] Integument: Denies rash. [] Neurologic: Denies headache, focal weakness or sensory changes. [] Endocrine: Denies polyuria or polydipsia. [] Lymphatic: Denies swollen glands. [] Psychiatric: Denies depression or anxiety. [] Heart Score: C/O Chest Pain: No Risk Factors: Risk Factors: DM, Current or recent (<one month) smoker, HTN, HLP, family history of CAD, obesity. Risk Scores: Score 0 - 3: 2.5% MACE over next 6 weeks - Discharge Home Score 4 - 6: 20.3% MACE over next 6 weeks - Admit for Clinical Observation Score 7 - 10: 72.7% MACE over next 6 weeks - Early Invasive Strategies Allergies: Allergies: Allergies Coded Allergies Type Severity Reaction Last Updated Verified aspirin Allergy Severe SOB 10/01/13 Yes fish derived Allergy Severe ANAPHYLAXIS 05/05/20 Yes ibuprofen Allergy Severe SOB 10/01/13 Yes Physical Exam: PE: Constitutional: Well developed, well nourished, no acute distress, non-toxic appearance. [] HENT: Normocephalic, atraumatic, bilateral external ears normal, oropharynx moist, no oral exudates, nose normal. [] Eyes: PERRLA, EOMI, conjunctiva normal, no discharge. [] Neck: Normal range of motion, no tenderness, supple, no stridor. [] Cardiovascular:Heart rate regular rhythm, no murmur [] Lungs & Thorax: Bilateral breath sounds clear to auscultation [] Abdomen: Bowel sounds normal, soft, no tenderness, no masses, no pulsatile masses. [] Skin: Warm, dry, no erythema, no rash. [] Back: No tenderness, no CVA tenderness. [] Extremities: Right medial and lateral ankle tenderness, no cyanosis, no clubbing, ROM intact, no edema. [] Neurologic: Alert and oriented X 3, normal motor function, normal sensory function, no focal deficits noted. [] Psychologic: Affect normal, judgement normal, mood normal. [] Current Patient Data: Vital Signs: Vital Signs Date Time Temp Pulse Resp B/P (MAP) Pulse Ox O2 Delivery O2 Flow Rate FiO2 04/28/21 18:14 99.0 100 18 135/85 (107) 95 Room Air 99.0 EKG: EKG: [] Radiology/Procedures: Radiology/Procedures: [] Impression: [facility] [address] [place], [place] [id number] IMAGING REPORT Signed PATIENT: MARY JANE PACHECO ACCOUNT: [id number] : 1975 LOCATION: ER AGE: 45 SEX: F EXAM STATUS: REG ER ORD. PHYSICIAN: WILIAM UNDERWOOD APRN REASON: TWISTING INJURY PROCEDURE: ANKLE RIGHT 3V XR EXAM OF ANKLE_RIGHT 3VIEWS DATE: 04/28/2021 5:08 PM INDICATION: TWISTING INJURY COMPARISON: None. FINDINGS: Bones: There is no evidence of acute fracture or dislocation. Postsurgical changes of lateral malleolus ORIF and first MTP joint arthrodesis. Joints: The ankle mortise is congruent. No widening of the distal tibiofibular syndesmosis. Miscellaneous: None. IMPRESSION: No acute fracture. Electronically signed by: Sarah Beth Goode MD (04/28/2021 5:46 PM) [facility] DICTATED and SIGNED BY: SARAH BETH GOODE MD DATE: 04/28/21 [id number] Course & Med Decision Making: Course & Med Decision Making Pertinent Labs and Imaging studies reviewed. (See chart for details) HPI. Alert and oriented x4. Ambulatory steady gait. Speaks in full clear sentences. Pedal pulses are strong are present. Skin is pink warm and dry. Cap refill is less than 2 seconds. She does have full range of motion of the extremity. No laxity. No deformity. Tenderness to the lateral and medial malleolus. Patient is placed in a Velcro stirrup splint. [] Dragon Disclaimer: Dragon Disclaimer: This electronic medical record was generated, in whole or in part, using a voice recognition dictation system. Departure Departure Impression: Primary Impression: Ankle injury Qualified Codes: S99.911A - Unspecified injury of right ankle, initial encounter Disposition: HOME / SELF CARE / HOMELESS Condition: STABLE Referrals: AIDE REID APRN (PCP) ZAIDA PANIAGUA DO Patient Instructions: Ankle Sprain Additional Instructions: Follow-up with your primary care or the orthopedic doctor. Take Tylenol and use elevation for pain and swelling. Use ice also. WILIAM UNDERWOOD APRN Apr 28, 2021 18:32
[2021-04-28] MEDS ORDERED: HYDROcodone/APAP 5/325MG 1 TAB TABLET PO ONE (19:45)
== END 2021-04-28 19:39 | disposition home or self-care (01) ==
LOC: ER 13:52
DX: S99.911A Unspecified injury of right ankle, initial encounter (principal); F31.9 Bipolar disorder, unspecified; J45.909 Unspecified asthma, uncomplicated; I10 Essential (primary) hypertension; G43.909 Migraine, unspecified, not intractable, without status migrainosus; F17.200 Nicotine dependence, unspecified, uncomplicated; Z87.820 Personal history of traumatic brain injury; E66.01 Morbid (severe) obesity due to excess calories; Z68.42 Body mass index [BMI] 45.0-49.9, adult; Z88.6 Allergy status to analgesic agent; Z91.013 Allergy to seafood; Z88.8 Allergy status to other drugs, medicaments and biological substances; W22.8XXA Striking against or struck by other objects, initial encounter; Y93.89 Activity, other specified; Y92.89 Other specified places as the place of occurrence of the external cause; Y99.8 Other external cause status
CPT/HCPCS: 29515; 73610; 99283